=== PATIENT | male | born 1945 | race Caucasian/White ===

== ENCOUNTER 2024-11-29 17:27 | Emergency (ER) | payer MEDICARE, SELFPAY ==
[2024-11-29 17:41] VITALS: BP 137/82; PULSE 76; TEMP 36.9; O2SAT 97; BMI 19.0
--- NOTE | 2024-11-29 18:03 | CT_ITS ---
The [address] [address] Patient Name: SARWAT JOYCE MRN: [id number] date: 1945 Sex: M Assigned Patient Location: ER Current Patient Location: .[facility] Accession/Order Number: [id number] Exam Date: 11/29/2024 18:20 Report Date: 11/29/2024 18:45 At the request of: BARB RITCHIE MD Procedure: CT abdomen pelvis wo con CT abdomen pelvis wo con 11/29/2024 6:25 PM SIGNS AND SYMPTOMS: ^abd pain cramping TECHNIQUE: Multidetector ct axial images of the abdomen and pelvis were obtained without IV contrast. Multiplanar reformats were performed and reviewed to further define anatomy and possible pathology. CT was performed with one or more of the following dose reduction techniques: Automated exposure control, adjustment of the mA and/or kV according to patient size, or use of iterative reconstruction technique. COMPARISON: None. FINDINGS: Lower Chest: Atherosclerotic changes are noted in the coronary arteries and thoracic aorta. Emphysematous changes are noted in the lung parenchyma. ABDOMEN: Liver: Multiple hypoattenuating structures are noted in the liver measuring up to 1.7 cm in greatest dimension. These are nonspecific. Hepatic metastatic disease should be considered. Bile Ducts: Normal caliber. Gallbladder: Previously removed Pancreas: There is a heterogeneous mass along the head of the pancreas measuring 6.3 cm in greatest dimension suspicious for primary pancreatic malignancy. Spleen: Within normal limits. Adrenals: Bilateral adrenal masses are noted measuring 1.8 cm on the left and 2.3 cm on the right suspicious for metastatic disease. Kidneys: Within normal limits. Pelvis: Reproductive Organs: No pelvic masses. Ureters: Within normal limits. Bladder: Within normal limits. Bowel: Several uncomplicated colonic diverticula are noted. There is a moderate to large amount of stool within the colon suspicious for constipation. There is no bowel obstruction. There is a normal appendix in the right lower quadrant. Mesenteric Lymph Nodes: No enlarged mesenteric lymph nodes. Peritoneum: No ascites or free air, no fluid collection. Vessels: Atherosclerotic changes noted in the abdominal aorta and its branches. Retroperitoneum: Within normal limits. Abdominal Wall: Within normal limits. Bones: Degenerative changes are noted in the lumbar spine as well as the hips and sacroiliac joints. CT/CT abdomen pelvis wo con IMPRESSION: There is a heterogeneous mass along the head of the pancreas measuring 6.3 cm in greatest dimension suspicious for primary pancreatic malignancy. 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 Diffuse emphysematous changes are noted in the lung parenchyma There is a large amount of stool throughout colon suggesting constipation. Impression dictated by: Be Esquivel M.D. 11/29/2024 6:45 PM Dictation Location: [place] [address] Electronically authenticated by: [id number] Y Date: 11/29/2024 18:45
--- NOTE | 2024-11-29 18:23 | ED.ABDPAIN1 ---
HPI - Abdominal Pain General Chief Complaint: Abdominal Pain Stated Complaint: Abdominal Pain Time Seen by Provider: 11/29/24 17:53 Source: patient Mode of arrival: walk-in Limitations: no limitations History of Present Illness HPI narrative: 79-year-old male to the ER after his daughter brought him here for evaluation, he has been having for the last week abdominal pain mostly all over the abdomen mostly in the middle. According to him the pain comes and goes and it not related to food sometimes gets worse after food. Not associate with any nausea and vomiting and change in bowel habits including diarrhea or constipation Have no blood in stool denies any fever or chills and he does not have any pain at the moment Last time he had this pain was earlier before but his daughter was concerned because he had a history of aortic aneurysm that he does regular ultrasound for and she was worried that this is mostly secondary to that The patient denies any burning with urination no blood in urine as well Related Data Home Medications ?Medication ?Instructions ?Recorded ?Confirmed albuterol sulfate 2.5 mg/3 mL 2.5 mg inhalation Q8H PRN 11/29/24 11/29/24 (0.083 %) solution for nebulization shortness of breath or wheezing alprazolam 0.25 mg tablet 0.25 mg PO TID PRN anxiety 11/29/24 11/29/24 duloxetine 60 mg capsule,delayed 60 mg PO DAILY 11/29/24 11/29/24 release Allergies Allergy/AdvReac Type Severity Reaction Status Date / Time No Known Drug Allergies Allergy Verified 11/29/24 17:41 Review of Systems ROS Status of ROS 10 or more systems reviewed and unremarkable except as noted in history and below PFSH PFSH Social History Little interest or pleasure in doing things: not at all Feeling down, depressed, or hopeless: not at all Exam Narrative Exam Narrative: Nurses notes and vital signs reviewed and patient is not hypoxic. General: Well-appearing and in no apparent distress. Skin: Warm, dry, no pallor noted. No rash. Head: Normocephalic, atraumatic. Neck: Supple, non-tender. Cardiovascular: Regular Rate and Rhythm without murmur, gallop or rub. Respiratory: No accessory muscle use or respiratory distress. Lungs are clear to auscultation, no wheezing, rales or rhonchi Chest Wall: no tenderness Back: No midline thoracic or lumbar vertebral tenderness. No CVA tenderness Musculoskeletal: normal ROM, no calf or popliteal tenderness, no lower extremity edema/swelling GI: Abdomen is soft, non-distended. Normal bowel sounds. No masses appreciated. No tenderness to palpation. No rebound, guarding, or rigidity noted. Neurological: A&O x4. No cranial nerve dysfunction observed. No truncal ataxia. Moves all extremities. Sensation intact. Psychiatric: Cooperative and interactive. Normal mood and affect. Constitutional Vital Signs, click to edit/add: Last Vital Signs Temp 98.4 F 11/29/24 17:41 Pulse 76 11/29/24 17:41 Resp 16 11/29/24 17:41 BP 137/82 11/29/24 17:41 Pulse Ox 97 11/29/24 17:41 O2 Del Method Room Air 11/29/24 17:41 Course Vital Signs Vital signs: Vital Signs Temperature 98.4 F 11/29/24 17:41 Pulse Rate 76 11/29/24 17:41 Respiratory Rate 16 11/29/24 17:41 Blood Pressure 137/82 11/29/24 17:41 Pulse Oximetry 97 11/29/24 17:41 Oxygen Delivery Method Room Air 11/29/24 17:41 Temperature 98.4 F 11/29/24 17:41 Pulse Rate 76 11/29/24 17:41 Respiratory Rate 16 11/29/24 17:41 Blood Pressure 137/82 11/29/24 17:41 Pulse Oximetry 97 11/29/24 17:41 Oxygen Delivery Method Room Air 11/29/24 17:41 MDM - Abdominal Pain MDM Narrative Medical decision making narrative: Right now the pt is not in any distress, although he does have risk factors But his pain is crampy like in the lower abdomen mostly than the upper although he does not have it at the moment. The pain sometimes could be supraumbilical Right now the patient will have a general workup including CBC and chemistry as well as urine CT abd and pelvis pending Discharge Plan Discharge Patient Disposition: Still a Patient
[2024-11-29 18:30] LABS: Hematocrit 36.0 % (42.0-54.0); Hemoglobin 12.3 g/dL (14.0-18.0); Immature Granulocytes Abs Auto 0.01 10^3/uL (0.00-0.03); Immature Granulocytes Pct Auto 0.1 % (0.0-0.5); Lymphocytes Absolute Auto 1.2 10^3/uL (1.2-3.8); Mean Corpuscular HGB Conc 34.2 g/dL (29.9-35.2); Mean Corpuscular Hemoglobin 31.6 pg (25.9-34.0); Mean Corpuscular Volume 92.5 fL (80.0-94.0); Platelet Count 303 10^3/uL (150-450); Red Blood Count 3.89 10^6/uL (4.70-6.10); White Blood Count 7.5 10^3/uL (4.0-11.0)
[2024-11-29 18:39] LABS: Alanine Aminotransferase 28 U/L (16-63); Albumin Globulin Ratio 0.7; Albumin Level 3.1 g/dL (3.4-5.0); Alkaline Phosphatase 108 U/L (46-116); Anion Gap 13.1; Aspartate Amino Transferase 16 U/L (15-37); Blood Urea Nitrogen 14.0 mg/dL (7.0-18.0); Calcium 9.1 mg/dL (8.5-10.1); Carbon Dioxide 27.5 mmol/L (21.0-32.0); Chloride 104 mmol/L (98-107); Estimated GFR (African America >60 (>=60 mL/min/1.73m^2); Estimated GFR (Non-African Ame >60 (>=60 mL/min/1.73m^2); Globulin 4.2 g/dL; Glucose 113 mg/dL (74-106); Potassium 4.6 mmol/L (3.5-5.1); Sodium 140 mmol/L (136-145); Total Protein 7.3 g/dL (6.4-8.2)
[2024-11-29 18:42] LABS: Lactate/Lactic Acid 0.8 mmol/L (0.4-2.0)
[2024-12-01 12:08] LABS: CA 19-9 2454 U/mL (0-35); CEA 66.2 ng/mL (0.0-4.7)
== END 2024-11-29 19:21 | disposition home or self-care (01) ==
PROVIDERS: Emergency Provider Emergency Medicine; PCP Internal Medicine
DX: K86.9 Disease of pancreas, unspecified (principal); R10.9 Unspecified abdominal pain
CPT/HCPCS: 36415; 74176; 80053; 82378; 83605; 85025; 86301; 86316; 99285

== ENCOUNTER 2024-12-12 08:49 | Outpatient (RCR) | payer MEDICARE, SELFPAY ==
--- NOTE | 2024-12-12 11:15 | CT_ITS ---
The [address] [address] Patient Name: SARWAT JOYCE MRN: [id number] date: 1945 Sex: M Assigned Patient Location: [facility] Current Patient Location: [facility] Accession/Order Number: [id number] Exam Date: 12/12/2024 11:00 Report Date: 12/12/2024 12:12 At the request of: JUSTINA FERNANDES MD Procedure: CT angio chest CT PULMONARY ANGIOGRAM WITH CONTRAST CLINICAL HISTORY: Worsening shortness of breath. History of right lung cancer with upper lobectomy. Possible pancreatic cancer. COMPARISON: 07/05/2021, PET/CT 06/24/[address] 11/29/2024 TECHNIQUE: Spiral images were obtained through the chest following intravenous administration of 100 mL of Omnipaque 350. Images were reviewed using both narrow and wide window settings. Sagittal, coronal and 3 D volume-rendered reconstructions were performed and reviewed. This CT exam was performed using one or more following dose reduction techniques: Automated exposure control, adjustment of the mA and/or kV according to patient size, or use of iterative reconstruction technique. FINDINGS: The heart is borderline prominent. There is no pericardial effusion. There is mild coronary artery disease. There is mild dilatation ascending aorta with diameter 4.3 cm, similar the prior. There is no dissection. Atherosclerotic plaque is present at the aortic arch, descending aorta and proximal great vessels. There is adequate opacification of the pulmonary arteries. Bilateral segmental and subsegmental pulmonary artery filling defects are present compatible with emboli. There is right hilar mass/adenopathy extending into the paratracheal region. This is not seen in 2021 and is presumed to be patient's reported lung cancer. There is still suspected left thyroid nodularity. Mild degenerative changes are present at the spine. There is minor wedge deformity at superior endplate of T11 where there is also a Schmorl's node. There is a rounded lucency within the same vertebral body inferiorly on the left which is new since the comparison. A metastatic lesion is not excluded. There is obstructive lung disease with airspace lucencies and subpleural blebs. There is mild paramediastinal consolidation at the right upper lobe. There is scarring or atelectasis at the lung bases. There is a trace amount of pleural fluid at the right posterior costophrenic angle. There is no pneumothorax or discrete soft tissue nodules. Limited cuts through the upper abdomen show scattered indeterminate hepatic hypodensities. These may be cysts however metastatic lesions are not excluded. There is still a irregular enlargement of the pancreatic head. There are irregular bilateral adrenal masses. There might be a left renal cyst on the final image. There is also tiny renal cyst on the right. CT/CT angio chest IMPRESSION: BILATERAL PULMONARY EMBOLI. BORDERLINE CARDIOMEGALY AND MILDLY DILATED ASCENDING AORTA. RIGHT HILAR/SUPRAHILAR MASS AND/OR ADENOPATHY PRESUMED TO REPRESENT REPORTED NEOPLASM. OBSTRUCTIVE LUNG DISEASE WITH ATELECTASIS AND/OR SCARRING. TRACE AMOUNT OF RIGHT PLEURAL FLUID. INCIDENTAL UPPER ABDOMINAL FINDINGS, ALSO SEEN ON RECENT ABDOMINAL CT. T11 LUCENCY, NOT SEEN PREVIOUSLY. METASTATIC DISEASE IS NOT EXCLUDED. Impression dictated by: Jacinda Rodas M.D. 12/12/2024 12:12 PM Dictation Location: [place] [address] Electronically authenticated by: [id number] Y Date: 12/12/2024 12:12
[2024-12-12 11:29] LABS: Hematocrit 35.7 % (42.0-54.0); Hemoglobin 11.7 g/dL (14.0-18.0); Immature Granulocytes Abs Auto 0.03 10^3/uL (0.00-0.03); Immature Granulocytes Pct Auto 0.4 % (0.0-0.5); Lymphocytes Absolute Auto 1.0 10^3/uL (1.2-3.8); Mean Corpuscular HGB Conc 32.8 g/dL (29.9-35.2); Mean Corpuscular Hemoglobin 30.6 pg (25.9-34.0); Mean Corpuscular Volume 93.5 fL (80.0-94.0); Platelet Count 324 10^3/uL (150-450); Red Blood Count 3.82 10^6/uL (4.70-6.10); White Blood Count 8.1 10^3/uL (4.0-11.0)
[2024-12-12 13:33] LABS: Alanine Aminotransferase 34 U/L (16-63); Albumin Globulin Ratio 0.7; Albumin Level 2.9 g/dL (3.4-5.0); Alkaline Phosphatase 106 U/L (46-116); Anion Gap 10.0; Aspartate Amino Transferase 22 U/L (15-37); Blood Urea Nitrogen 15.0 mg/dL (7.0-18.0); Calcium 9.0 mg/dL (8.5-10.1); Carbon Dioxide 31.4 mmol/L (21.0-32.0); Chloride 101 mmol/L (98-107); Estimated GFR (African America >60 (>=60 mL/min/1.73m^2); Estimated GFR (Non-African Ame >60 (>=60 mL/min/1.73m^2); Globulin 4.1 g/dL; Glucose 140 mg/dL (74-106); Potassium 4.4 mmol/L (3.5-5.1); Sodium 138 mmol/L (136-145); Total Protein 7.0 g/dL (6.4-8.2)
== END 2024-12-15 23:59 | disposition home or self-care (01) ==
LOC: HEMC 08:49
PROVIDERS: PCP Internal Medicine; Visit Provider Internal Medicine Hematology & Oncology
DX: C25.9 Malignant neoplasm of pancreas, unspecified (principal); D64.9 Anemia, unspecified; Z85.118 Personal history of other malignant neoplasm of bronchus and lung; R06.02 Shortness of breath; R07.9 Chest pain, unspecified; Z90.2 Acquired absence of lung [part of]; Z87.891 Personal history of nicotine dependence; Z80.41 Family history of malignant neoplasm of ovary; K76.9 Liver disease, unspecified; E27.9 Disorder of adrenal gland, unspecified; R10.13 Epigastric pain; R97.0 Elevated carcinoembryonic antigen [CEA]; I26.99 Other pulmonary embolism without acute cor pulmonale
CPT/HCPCS: 36415; 71275; 80053; 85025; 94618; G0463; Q9967

== ENCOUNTER 2024-12-18 13:23 | Outpatient (OUT) | payer MEDICARE, SELFPAY ==
--- OUTSIDE RECORDS SUMMARY | 2024-12-05 13:00 | XMS_ITS | Encounter Summary ---
Author Organization [facility] tem Address [id number] [address] [place] [address] Care Team Providers Care Tube Repairer Name Role Phone Matt Uribe MD Primary Care Provider [phone] Encounter Details DateTypeDepartmentCare Team (Latest Contact Info)Czayxzyiiyg95/21/2025 2:[address] On [address] [address] Social History Tobacco UseTypesPacks/DayYears UsedDateSmoking Tobacco: [id number] - 2007Smokeless Tobacco: Never Tobacco Cessation:Counseling Given: Not Answered Alcohol UseStandard Drinks/WeekCommentsNot Currently0 (1 standard drink = 0.6 oz pure alcohol)Hunger ScreeningAnswerDate RecordedWithin the past 12 months we worried whether our food would run out before we got money to buy more.Never True12/05/2024Within the past 12 months the food we bought just didn't last and we didn't have money to get more.Never True12/05/2024Sex and Gender Information ValueDate RecordedSex Assigned at BirthNot on fileLegal QcsGsls57/17/2025 1:53 PM EDTGender IdentityNot on fileSexual OrientationNot on filedocumented as of this encounter Last Filed Vital Signs Vital SignReadingTime TakenCommentsBlood Pressure--Pulse--Temperature-- Respiratory Rate--Oxygen Saturation--Inhaled Oxygen Concentration--Syfyiv15.2 kg (135 lb)12/05/2024 3:17 PM OARRsehjk177.9 cm (6')12/05/2024 3:17 PM EDTBody Mass Index18.311 3:17 PM EDTdocumented in this encounter Miscellaneous Notes * Pre-Procedure Instructions - Liane Bustillo RN - 12/05/2024 2:00 PM EDT Your surgery/procedure is scheduled at [facility] on 12/06/2024 at 1215 Arrival [id number] [facility] Address: [address] [place] [address] Park in [address]1 Parking lot located on [facility]. Report to the Entrance B. Check in at the information desk. The waiting room is located on the second floor. If you have any questions prior to surgery, please call Pre-Admission Clinic at [phone] between 7:30 am and 4:30 pm Wednesday through Wednesday. If you have questions the morning of surgery, please call the Pre-op Department at [phone]. Notify your SURGEON if you develop any illness such as a cold, cough, fever, sore throat, vomiting or are hospitalized between now and your surgery. Medication Instructions (Do not stop your medications without consulting the prescribing physician). Take the following medications the morning of surgery with a sip of water: Xanax, [place] Diabetic or Weight loss medications: HOLD: None Take inhalers as prescribed the morning of surgery. Due to the risk associated with these medications. If these medications are not held per instruction below, your surgery is at an increased risk for cancellation. SGLT2 Medications- Hold 3 days prior to surgery: Jardiance, Empagliflozin, Farxiga, Dapagliflozin, Invokana, Canagliflozin, Trijardy, Synjardy GLP-1 Medications (Injection or Pill)- If taken daily hold day of surgery. If taken weekly, hold 1 week prior to surgery: Adlyxin, Byetta, Bydureon, Ozempic, Rybelsus,Trulicity, Victoza, Wegovy, Lixisenatide, Exenatide, Semaglutide, Dulaglutide, Liraglutide GIP/GLP-1(Injection or Pill)- If taken daily hold day of surgery. If taken weekly, hold 1 week prior to surgery: Mounjaro . Blood thinners: Please contact your prescribing physician regarding a stop/hold date for these medications. Medications such as Coumadin, Heparin, Aspirin, Plavix, Eliquis, Pradaxa Diabetics: If you take insulin, contact your prescribing doctor for instructions on how to manage this the night before and the morning of surgery. Non-steriodal Anti-Inflammatory Drugs (NSAIDS)- Hold 3 days prior to surgery unless otherwise directed by your surgeon. Vitamins/Herbal Products: You may continue to take your prescribed vitamins such as potassium, iron, vitamin B, vitamin C, or multivitamin unless specifically instructed by your surgeon to hold. STOPtaking all herbal products/teas one week prior to your surgery. Marijuana: Stop marijuana 72 hours prior to surgery, stop CBD oil 48 hours prior to surgery. If you have been given bowel prep instructions by your surgeon, please call the surgeon's office with any questions about these instructions. What do I do the day of Surgery? Age 2 through adult - Stop all solids by midnight, You may have a small amount of clear liquids up to 2 hours before surgery, unless otherwise instructed by your surgeon. Clear liquids are: water, sports drinks such as Gatorade or G2, or apple juice. You may NOT have: tube feedings, dairy products, alcoholic beverages, orange juice, or any liquids with solids or pulp in it. If applicable, shower again with CHG soap the morning of your surgery. In order to help prevent infection post-operatively, you may be asked to use a CHG mouthwash when you arrive to the Pre-op area. Your nurse will provide instruction the morning of. What do I need to do to prepare for surgery? If you will be going home the same day as your surgery, arrange for an adult over [address] Riding in a bus or taxi by yourself is not permitted. You should not smoke or drink alcohol 24 hours before your surgery. Alcohol thins the blood and may cause bleeding problems during surgery. Smoking increases the risk of breathing problems after surgery. Do not use lotions, creams, powders, perfume, make up, cologne or after-shaves day of surgery. Remove ALL jewelry including wedding rings, body piercings (including dermal piercing's, hair extensions that contain metal, nail urdu, make-up, and contact lens. You may brush your teeth the morning of surgery, but do not swallow the water. Wear your dentures and partial plates to the hospital (no adhesive). Shower the night before your procedure. If applicable, use the CHG (chlorhexidine gluconate) soap or wipes. Place clean linens on your bed after showering and put on freshly laundered nightclothes. Do not allow pets to sleep in your bed What should I bring to the hospital? Eyeglass or contact lens case If you will be spending the night, please bring personal care items and leave them in the car untilyou are taken to your room after surgery. Leave ALL valuables at home. If any of these instructions conflict with those you received from the surgeon, please seek clarification from your surgeon's office. DEEP BREATHING EXERCISES This exercise helps promote good air exchange and helps to prevent pneumonia after surgery. Breathe in slowly and deeply through the nose. Hold your breath for a few seconds and then exhale slowly through the mouth. Repeat this three times and then cough.Coughing helps to clear your lungs. If you have had a surgery with an incision into your abdomen or chest, press gently against your incision with a pillow or a folded blanket when you cough. Please be aware - it may not be plaza to cough following some types of surgeries involving the eyes,ears, sinuses and throat. Always follow your doctor's instructions. LEG EXERCISE These exercises help promote good circulation and help to prevent blood clots after surgery. Point your toes to the ceiling and then point them to the wall. Do this slowly about 15-20 times. You may also move your feet in circles. Do the exercise that is most comfortable for you. If you have had surgery involving your shoulder or arm, we recommend you move your fingers. PRACTICING We ask that you begin practicing these exercises before your surgery. After surgery try to do both exercises at least every 2 hours during the day and early evening. Surgical Site Infection Prevention What is a Surgical Site Infection (SSI)? Infection can happen to the area of the body where surgery is done. This is called a surgical site infection (SSI). A SSI does not happen very often. What are some of the things that hospitals are doing to prevent SSIs? Soap and water or alcohol hand rub are used before and after caring for each patient. Special soap is used to clean surgery workers hands and arms just before the surgery. Masks, gowns, gloves and hair covers are worn during the surgery to keep the area clean. Hair in the surgery area may be removed with clippers (not razors). A special soap that kills germs is used to clean the skin at the surgery site. Antibiotics may be given before the surgery starts. What can you do to prevent SSIs? Before surgery: You may be asked to shower or bathe with a special soap that kills germs the night before and the day of surgery. Use the soap as you were told. Place clean sheets on your bed the night before surgery and do not allow your pets in your bed. If you smoke or vape, stop or cut down. This creates a stress response in your body that increases inflammation, constricts blood vessels and deprives your tissues of oxygen. After surgery, this stress response disrupts the travel of oxygen, nutrients, and blood to your surgical site, interfering with the wound healing process. It also decreases the ability of your cells to fight infection. Ask your doctor about ways to quit. If you have high blood sugars or diabetes please talk with your doctor about having healthy blood sugar levels to promote healing. Do not shave near where you will have surgery. Shaving can irritate the skin and make it easier to get and infection. After surgery: Be sure that the doctors and nurses clean their hands before and after touching you. Be sure your family and friends clean their hands before and after visiting you. Do not be afraid to remind them. Always wash your hands before touching your incisional area. * Care for your wound at home as told by your doctor or nurse * Call your doctor right away if you have fever, redness, increased pain, or drainage at the surgery site. Can SSIs be treated? Antibiotics are used to treat SSI. Some patients may need another surgery to treat the infection. The doctor will discuss treatment options with you. Further questions? Contact the doctor, nurse or the Infection Prevention and Control department if you have any questions. PATIENT RIGHTS AND RESPONSIBILITIES As a patient at [facility], you have the right to: Receive medical care and be informed of who is taking care of you Be treated with dignity and respect Have a family member/customer contact representative of choice and your physician notified of your admission Receive information and actively participate in decisions about your care and treatment Refuse care, treatment and services Decide who may provide your support and speak for you Access denominational and spiritual services Participate in ethical issues and questions about your care Receive private and confidential care Have appropriate assessment and management of your pain Know guest visitation restrictions or limitations Have an advance directive Access protective services Consent or refuse to participate in research studies or production or recordings, films or other images Have resolution of your complaints Receive information of hospital charges and payment methods Patient/patient customer contact representative responsibilities are to: Provide information about health status to facilitate care, treatment and services Follow the treatment, plan, keep appointments and speak up when you do not understand the plan Respect the rights of other patients and healthcare personnel Follow organizational rules and regulations that support quality care and a safe environment Fulfill financial obligations as promptly as possible documented in this encounter Plan of Treatment Not on file documented as of this encounter Visit Diagnoses Not on filedocumented in this encounter Care Teams Team MemberRelationshipSpecialtyStart DateEnd Date Matt Uribe MD [address] [id number] PCP - GeneralInternal Lgoqiobd36/21/25documented as of this encounter
--- OUTSIDE RECORDS SUMMARY | 2024-12-06 09:26 | XMS_ITS | Encounter Summary ---
Author Organization [facility] tem Address [id number] [address] [place] [address] Care Team Providers Care Time Analysis Clerk Name Role Phone Matt Uribe MD Primary Care Provider [phone] Reason for Referral * Misc (Routine) - Pending ReviewSpecialtyDiagnoses / ProceduresReferred By ContactReferred To Contact Procedures Adult diet- Regular Ramirez Ochoa MD [address] [place] [address] Phone: tel: fax: Referral IDStatusReasonStart DateExpiration DateVisits RequestedVisits [id number] * Misc (Routine) - Pending ReviewSpecialtyDiagnoses / ProceduresReferred By ContactReferred To Contact Diagnoses Pancreatic mass Procedures What to Expect after Endoscopy Ramirez Ochoa MD [address] [place] [address] Phone: tel: fax: Referral IDStatusReasonStart DateExpiration DateVisits RequestedVisits [id number] Reason for Visit * Auth/Cert (Routine)SpecialtyDiagnoses / ProceduresReferred By ContactReferred To Contact Diagnoses Ne pancreatic mass Procedures RI ESOPHAGOGASTRODUODENOSCOPY TRANSORAL DIAGNOSTIC ESOPHAGOGASTRODUODENOSCOPY DIAGNOSTIC ENDOSCOPIC ULTRASOUND UPPER Cintia Stephens MD [address] [facility], [address] [place] [address] Phone: tel: fax: Referral IDStatusReasonStart DateExpiration DateVisits RequestedVisits [id number] Encounter Details DateTypeDepartmentCare Team (Latest Contact Info)Uocnpkaqmho63/22/2025 10:26 AM EDT - 12/06/2024 3:56 PM EDTHospital Encounter [facility] - [facility] [address] [place] [phone] Cintia Stephens MD [address] [place] [address], [address] [place] [address] Pancreatic mass (Primary Dx) Discharge Disposition: Home Social History Tobacco UseTypesPacks/DayYears UsedDateSmoking Tobacco: [id number] - 2007Smokeless Tobacco: NeverAlcohol UseStandard Drinks/WeekCommentsNot Currently0 (1 standard drink = 0.6 oz pure alcohol)Hunger ScreeningAnswerDate RecordedWithin the past 12 months we worried whether our food would run out before we got money to buy more.Never True12/05/2024Within the past 12 months the food we bought just didn't last and we didn't have money to get more.Never True12/05/2024Sex and Gender InformationValueDate RecordedSex Assigned at Not on fileLegal LikTvuv94/17/2025 1:53 PM EDTGender IdentityNot on fileSexual OrientationNot on filedocumented as of this encounter Last Filed Vital Signs Vital SignReadingTime TakenCommentsBlood Zvtyzaus446/7512/06/2024 3:05 PM EDT Icbra789212/06/2024 3:10 PM WHRSuyxguwejgj23.3 ??C (97.3 ??F)12/06/2024 2:35 PM EDTRespiratory Tltl4521 3:10 PM EDTOxygen Cpdxvbejhs53%12/06/2024 3:10 PM EDTInhaled Oxygen Concentration--Weight--Height--Body Mass Index--documented in this encounter Discharge Instructions * Discharge Instructions* Tiesha Aquino RN - 12/06/2024 2:30 PM EDT General Activity: If you have been put to sleep (general anesthetic) or received any sedation, your judgement and coordination may be impaired. Be careful on steps, holding a hot drink, etc. Do not make any important decisions or sign any important papers in the next 24 hours. You should have a responsible adult with you the rest of today and tonight. Restrict your activities and rest for the day. Resume light to normal activity tomorrow as you feelyou can. You are advised to go directly home from the hospital. Do not engage in strenuous activities Do not drive or operate machinery for 24 hours. Do not consume alcohol, tranquilizers, sleeping medications, or any non- prescribed medication for 24 hours unless advised by your doctor to do so. Children may become very pink and flushed for the next 24 hours. Specific problems to watch for: Severe of unexplained pain. Fever greater than 101 in the next few days. Inability to pass urine in the next 6-8 hours. No driving, working, or operating machinery for 24 hours. Do not make any critical or important decisions today. If you had an EGD, you may have a sore throat. You may gargle with warm salt water or use throat lozenges. Things to go to the nearest ER for: Fever and/or chills Persistent vomiting, or any vomiting with blood. Severe chest pain Severe abdominal pain, that is not gas pains. Black tarry stools, or any bleeding in the toilet more than 1 tablespoon documented in this encounter Medications at Time of Discharge MedicationSigDispense QuantityRefillsLast FilledStart DateEnd Date albuterol (PROVENTIL,VENTOLIN) 2.5 mg /3 mL (0.083 %) nebulizer solution 3 mL (2.5 mg total) Three times daily as needed.11/30/2024 ALPRAZolam (XANAX) 0.25 mg tablet Take 1 tablet (0.25 mg total) by mouth every 8 (eight) hours as needed for anxiety.08/01/2024 DULoxetine (CYMBALTA) 60 mg capsule Indications:anxiety with depressionTake 1 capsule (60 mg total) by mouth in the morning. Indications: anxiousness associated with depression.05/22/2024 amoxicillin-pot clavulanate (AUGMENTIN) 875-125 mg per tablet Take 1 tablet by mouth in the morning and 1 tablet before bedtime.12/01/2024 12/11/2024 HYDROcodone-acetaminophen (NORCO) 5-325 mg per tablet Take 1 tablet by mouth every 6 (six) hours as needed. documented as of this encounter H&P Notes * Ramirez Ochoa MD - 12/05/2024 1:56 PM EDT Images from the original note were not included. GENERAL HISTORY AND PHYSICAL: 12/05/24 PROBLEM: Active Problems: * No active hospital problems. * HISTORY OF PRESENT ILLNESS: Angel Luis Davis is an 79 y.o. Unknown male. Of abdominal discomfort with abdominal pain and nausea and therefore wanted to the ED. Abdominal CT scan was done and showed findings concerning for pancreatic mass concerning for malignancy. Therefore patient is scheduled for EGD with EUS. LFTs reportedly normal. Can not see the CT report or labs in his chart. PAST MEDICAL HISTORY: No past medical history on file. PAST SURGICAL HISTORY: No past surgical history on file. Travel History Travel Screening No screening recorded since 12/02/24 1356 Travel History Travel since 11/05/24 No documented travel since 11/05/24 SOCIAL HISTORY: Social History Socioeconomic History Marital status: Spouse name: Not on file Number of children: Not on file Years of education: Not on file Highest education level: Not on file Occupational History Not on file Tobacco Use Smoking status: Not on file Smokeless tobacco: Not on file Substance and Sexual Activity Alcohol use: Not on file Drug use: Not on file Sexual activity: Not on file Other Topics Concern Not on file Social History Narrative Not on file Social Drivers of Health Financial Resource Strain: Not on file Food Insecurity: Not on file Transportation Needs: Not on file Physical Activity: Not on file Stress: Not on file Social Connections: Not on file Interpersonal Safety: Not on file Housing Instability: Not on file ALLERGIES: Not on File HOME MEDICATIONS: No medications prior to admission. IMMUNIZATIONS: There is no immunization history on file for this patient. REVIEW OF SYSTEMS: Review of Systems No LMP for male patient. There were no vitals taken for this visit. No data recorded PHYSICAL EXAM: Physical Exam ASSESSMENT: Angel Luis Davis is an 79 y.o. Unknown male. Of abdominal discomfort with abdominal pain and nausea and therefore wanted to the ED. Abdominal CT scan was done and showed findings concerning for pancreatic mass concerning for malignancy. Therefore patient is scheduled for EGD with EUS. LFTs reportedly normal. Can not see the CT report or labs in his chart. PLAN: Will plan for EGD with EUS for further evaluation of pancreatic mass concerning for malignancy Cosigned by Cintia Stephens MD at 12/06/2024 12:36 PM EDT Associated attestation - Cintia Stephens MD - 12/06/2024 12:36 PM EDT The patient was seen and examined. Agree with the assessment and plan. The patient is presenting with abdominal pain and weight loss. He had a CT scan of abdomen that revealed pancreatic mass suspicious for malignancy. The patient is scheduled to have an upper endoscopyand endoscopic ultrasound to assess the pancreas. documented in this encounter Miscellaneous Notes * Discharge instr - Endo Pulm - Cintia Stephens MD - 12/06/2024 12:58 PM EDT Patient Instructions After Upper EUSPatient: Angel Luis DavisMRN: [id number] Date: December 06ttending MD: Cintia White Doctor recommends:NoneGo directly to the emergency room if you notice any of the following: Chills and fever over 101 Persistent vomiting or vomiting with blood Severe abdominal pain, other than gas cramps Severe chest pain Black, tarry stools Any bleeding - exceeding one tablespoonIf you have any questions on the above instructions, please call the GI Lab. Nurse Signature Patient/Designated Responsible Republican SignatureDr. Cintia Stephens, 12/07/2024 8:25:57 AM documented in this encounter Plan of Treatment Not on file documented as of this encounter Procedures Procedure NamePriorityDate/TimeAssociated DiagnosisCommentsNON-GYNECOLOGIC NLJMAOOYDkozdpy23/22/2025 1:47 PM EDT ENDOSCOPIC ULTRASOUND UPPER12/06/2024 1:12 PM EDT Ne pancreatic mass RI ESOPHAGOGASTRODUODENOSCOPY TRANSORAL JORFTXZRCC12/22/2025 1:12 PM EDT Ne pancreatic mass ENDOSCOPIC ULTRASONOGRAPHY, GI UPPER12/06/2024 12:58 PM EDT PROVATION UPPER PVAXiytwfd99/22/2025 11:08 AM EDT documented in this encounter Results * Cytology non-gynecologic (12/06/2024 1:47 PM EDT)ComponentValueRef RangeTest MethodAnalysis TimePerformed AtPathologist SignatureCase ReportMedical Cytology Report ? Case: [id number] ? Authorizing Provider: ??Cintia Stephens MD ? Collected: ? 12/06/2024 1347 ? Ordering Location: ? [facility] ??Received: ?12/06/2024 1425 ? - Endoscopy ? Pathologist: ? Rodrigo Cody MD ? Specimens: ?? 1) - Liver, Left Hepatic Lobe ? 2) - Adrenal Gland, Left Adrenal Mass ? 3) - Pancreas, Pancreas Mass ? 12/11/2024 11:40 AM [facility]ORATORYFinal Diagnosis1. Liver lesion, fine-needle aspiration: Positive for metastatic ADENOCARCINOMA. 2. Adrenal gland, fine-needle aspiration: Positive for metastatic ADENOCARCINOMA. Note: This case is reviewed intradepartmentally by another pathologist who agrees with the diagnosis. Immunohistochemical stains are performed with satisfactory controls. Neoplastic cells are positive for AE1/AE3 and are negative for PAX8, CK20, mart 1 and inhibin. Cytologic features and pattern of immunohistochemical staining is supportive of a diagnosis of an adenocarcinoma. 3. Pancreas mass, fine-needle aspiration (cellblock only): Few atypical cells, suspicious for adenocarcinoma.12/11/2024 11:40 AM [facility] at 1140 EDTIntraoperative Consultation1. Liver fine needle aspirate: Pass 1: Positive for neoplasm 2. Adrenal fine needle aspirate: Pass 1: Positive for neoplasm Dr. Shae Cody Interpretation provided at [facility], [facility] [place] [address]. 12/11/2024 11:40 AM [facility]ORATORYGross Description1. Prepared in Endoscopy were 2 slides (1DQ). Also received was a needle rinse in CytoLyt for Thinprep. 2. Prepared in Endoscopy were 2 slides (1DQ). Also received was a needle rinse in CytoLyt for cellblock. Needle rinse obtained at 13:54 and placed in formalin at 18:00 with a total formalin fixation time of 7 hours. 3. Received was 20ml of cloudy pink fluid in CytoLyt for cellblock labeled as Ryan, Pancreas FNA . Specimen placed in formalin at 18:00 with a total fixation time of 7 hours. 12/11/2024 11:40 AM [facility] LABORATORYEmbedded Images 12/11/2024 11:40 AM [facility] LABORATORYSpecimen (Source)Anatomical Location / LateralityCollection Method / VolumeCollection TimeReceived TimeFine Needle AspirateLiver structure / Tahmjnz9912/06/2024 1:47 PM EDT1 2:25 PM EDTComment:Pre-op diagnosis: Ne pancreatic massSpecimen obtained by fine needle aspiration procedure (specimen)Adrenal structure / Xcijkul7212/06/2024 1:54 PM EDT1 2:25 PM EDTComment:Pre-op diagnosis: Ne pancreatic massSpecimen obtained by fine needle aspiration procedure (specimen)Pancreatic structure / Kgtlzwq2212/06/2024 2:03 PM EDT1 2:25 PM EDTComment:Pre-op diagnosis: Ne pancreatic mass Narrative Authorizing ProviderResult TypeResult StatusAli T Nawras MDPATHOLOGY/CYTOLOGY ORDERABLESFinal ResultPerforming OrganizationAddressCity/State/ZIP CodePhone Number [facility] [address] [place] [address], [facility] [address] [place] [address], * Endoscopic Ultrasonography, GI Upper (12/06/2024 12:58 PM EDT)Specimen (Source)Anatomical Location / LateralityCollection Method / VolumeCollection TimeReceived Time12/06/2024 12:58 PM EDT Narrative PM C[facility] - 12/07/2024 8:26 AM EDT [facility] Patient Name: Angel Luis Davis ?? Procedure Date: 12/06/2024 12:58 PM ? CSN: [id number] Date of : 1945 Admit Type: Outpatient Age: 79 Room: [place] [address] Gender: Male Note Status: Finalized Attending MD: Cintia Stephens , , Procedure: ?Upper EUS Indications: ?History of lung cancer that was resected in ?2022. ?Pancreatic mass, liver mass, and adrenal mass. Providers: ?Lux Abdalla MD Referring MD: ? Requesting Provider: ? Medicines: ?Monitored Anesthesia Care Complications: ?No immediate complications. Procedure: ?After obtaining informed consent, the endoscope ?was passed under direct vision. Throughout the ?procedure, the patient's blood pressure, pulse, ?and oxygen saturations were monitored ?continuously. The Endoscope was introduced ?through the mouth, and advanced to the second ?part of duodenum. The was introduced through ?the mouth, and advanced to the second part of ?duodenum. The upper EUS was accomplished ?without difficulty. The patient tolerated the ?procedure well. Findings: ? Examination of the esophagus revealed 1 cm salmon-colored mucosal ? segment extended from 45-46 cm from the incisors. The GE junction was ? noted at 46 cm and the diaphragm hiatus was noted at 48 cm from the ? incisors. Examination of the stomach was unremarkable as well as ? examination of the duodenum. Examination of the abdominal aorta and the ? celiac axis was unremarkable. Examination of the left adrenal revealed a ? hypoechoic round and well demarcated mass measured 26.8 mm x 21.0 mm. ? Examination of the left lobe of the liver revealed a small lesion that ? measured 12 mm by 7.5 mm. The endosonographic examination of the ? pancreatic body revealed a hypoechoic heterogeneous and ill-defined mass ? that measured 60.2 mm x 34.4 mm. The pancreatic duct measured 6.3 mm at ? the tail of the pancreas. Examination of the head of the pancreas ? revealed the pancreatic head mass which is likely an extension of the ? mass noted at the body of the pancreas. The common bile duct measured ? 8.5 mm. No choledocholithiasis was noted. The radial echoendoscope was ? then withdrawn and the Olympus video curvilinear array echoendoscope was ? introduced through the mouth down to the esophagus into the stomach. The ? left hepatic lobe lesion was re-identified and with the use of 25 gauge ? needle fine-needle aspiration was performed. The left adrenal mass was ? re-identified and with the use of the 25 gauge needle fine-needle ? aspiration was performed. Finally fine-needle aspiration of the ? pancreatic body mass was performed using the 25 gauge needle. A ? cytopathologist was present in the room and confirmed the adequacy of ? the sample. Estimated Blood Loss: ? Minimal Impression: ? - Large pancreatic mass noted at the body/head ?of the pancreas measured 60.2 mm x 34.4 mm. ?Fine-needle aspiration was performed. ?- Small left hepatic lobe lesion measured 12 mm ?x 7.5 mm. Fine-needle aspiration was performed. ?- Left adrenal mass measured 26.8 mm x 21.0 mm. ?Fine-needle aspiration was performed. Recommendation: ? - Discharge patient to home (ambulatory). ?- Follow up cytology results. ?- Upon cytology results. ?- Follow up with Dr. Nick for further ?management. ?I was present in the endoscopy room during the ?entire procedure to supervise the fellow. Dr. Cintia Stephens, 12/07/2024 8:25:57 AM Number of Addenda: 0 Note Initiated On: 12/06/2024 12:58 PM Procedure Note Cintia Stephens MD - 12/07/2024 [facility] Patient Name: Angel Luis Davis Procedure Date: 12/06/2024 12:58 PM CSN: [id number] Date of : 1945 Admit Type: Outpatient Age: 79 Room: [place] [address] Gender: Male Note Status: Finalized Attending MD: Cintia Stephens , , Procedure: Upper EUS Indications: History of lung cancer that was resected in 2022. Pancreatic mass, liver mass, and adrenalmass. Providers: Lux Abdalla MD Referring MD: Requesting Provider: Medicines: Monitored Anesthesia Care Complications: No immediate complications. Procedure: After obtaining informed consent, theendoscope was passed under direct vision. Throughoutthe procedure, the patient's blood pressure,pulse, and oxygen saturations were monitored continuously. The Endoscope was introduced through the mouth, and advanced to thesecond part of duodenum. The was introduced through the mouth, and advanced to the second partof duodenum. The upper EUS was accomplished without difficulty. The patient toleratedthe procedure well. Findings: Examination of the esophagus revealed 1 cm salmon-colored mucosal segment extended from 45-46 cm from the incisors. The GE junction was noted at 46 cm and the diaphragm hiatus was noted at 48 cm from the incisors. Examination of the stomach was unremarkable as well as examination of the duodenum. Examination of the abdominal aorta andthe celiac axis was unremarkable. Examination of the left adrenalrevealed a hypoechoic round and well demarcated mass measured 26.8 mm x 21.0 mm. Examination of the left lobe of the liver revealed a small lesionthat measured 12 mm by 7.5 mm. The endosonographic examination of the pancreatic body revealed a hypoechoic heterogeneous and ill-definedmass that measured 60.2 mm x 34.4 mm. The pancreatic duct measured 6.3 mmat the tail of the pancreas. Examination of the head of the pancreas revealed the pancreatic head mass which is likely an extension of the mass noted at the body of the pancreas. The common bile duct measured 8.5 mm. No choledocholithiasis was noted. The radial echoendoscopewas then withdrawn and the Olympus video curvilinear array echoendoscopewas introduced through the mouth down to the esophagus into the stomach.The left hepatic lobe lesion was re-identified and with the use of 25gauge needle fine-needle aspiration was performed. The left adrenal masswas re-identified and with the use of the 25 gauge needle fine-needle aspiration was performed. Finally fine-needle aspiration of the pancreatic body mass was performed using the 25 gauge needle. A cytopathologist was present in the room and confirmed the adequacy of the sample. Estimated Blood Loss: Minimal Impression: - Large pancreatic mass noted at thebody/head of the pancreas measured 60.2 mm x 34.4 mm. Fine-needle aspiration was performed. - Small left hepatic lobe lesion measured 12mm x 7.5 mm. Fine-needle aspiration wasperformed. - Left adrenal mass measured 26.8 mm x 21.0mm. Fine-needle aspiration was performed. Recommendation: - Discharge patient to home (ambulatory). - Follow up cytology results. - Upon cytology results. - Follow up with Dr. Nick for further management. I was present in the endoscopy room duringthe entire procedure to supervise the fellow. Dr. Cintia Stephens, 12/07/2024 8:25:57 AM Number of Addenda: 0 Note Initiated On: 12/06/2024 12:58 PM Authorizing ProviderResult TypeResult Nella Stephens MDGI PROCEDURE ORDERABLESFinal ResultPerforming OrganizationAddressCity/State/ZIP CodePhone Number PM CARDIOVASC[facility] * Upper EUS Report (12/06/2024 11:08 AM EDT)Specimen (Source)Anatomical Location / LateralityCollection Method / VolumeCollection TimeReceived Time Narrative SYSTEMGENERATED, DOCUMENTATION - 12/06/2024 11:08 AM EDT This order has been auto-finalized for image and report archival in PACs. *For full report details, please reach out to your physician. ??This image is visible to you in MyChart.* Authorizing ProviderResult TypeResult Nella Stephens MDIMG OR IMG ORDERABLES Final Result documented in this encounter Visit Diagnoses Diagnosis Pancreatic mass- Primary Unspecified disease of pancreas documented in this encounter Administered Medications Medication OrderMAR ActionAction DateDoseRateSite fentaNYL (SUBLIMAZE) injection 25 mcg 25 mcg, intravenous, Every 5 min PRN, Pain Scale 1-5, Starting on Wed12/06/24 at 1428, PACU (only), Up to a maximum dose of 150 mcg. Look-alike/sound-alike medication - verify indication for use. fentaNYL (SUBLIMAZE) injection 50 mcg 50 mcg, intravenous, Every 5 min PRN, Pain Scale 6-10, Starting on Wed12/06/24 at 1428, PACU (only), Up to a maximum dose of 150 mcg Look-alike/sound-alike medication - verify indication for use. hydrALAZINE (APRESOLINE) injection 5 mg 5 mg, intravenous, Every 10 min PRN, high blood pressure, systolic blood pressure greater than 160 mmHg, Starting on Wed12/06/24 at 1428, PACU (only), Maximum dose of hydrALAZINE (APRESOLINE) is 20 mg while in PACU Look-alike/sound-alike medication - verify indication for use. Administer IV doses as a slow IV push; maximum rate: 5 mg/minute. labetaloL (NORMODYNE,TRANDATE) injection 5 mg 5 mg, intravenous, Every 5 min PRN, high blood pressure, systolic blood pressure greater than 160 mmHg and heart rate greater than 60 beats per minute, Starting on Wed12/06/24 at 1428, PACU (only), Maximum dose of labetalol (TRANDATE) is 20 mg while in PACU Look-alike/sound-alike medication - verify indication for use. meperidine (DEMEROL) injection 12.5 mg 12.5 mg, intravenous, Every 15 min PRN, shivering, Starting on Wed12/06/24 at 1428, For 2 doses, PACU (only), May repeat initial dose in 15 minutes, once, if initial meperidine (DEMEROL) dose ineffective for shivering. morphine injection 2 mg 2 mg, intravenous, Every 5 min PRN, for Pain Scale 1-5 if pain not controlled by fentanyl, Startingon Wed12/06/24 at 1428, PACU (only), Up to a maximum dose of 12 mg Look-alike/sound-alike medication - verify indication for use. morphine injection 4 mg 4 mg, intravenous, Every 5 min PRN, Pain Scale 6-10 if pain not controlled by fentanyl, Starting onWed 12/06/24 at 1428, PACU (only), Up to a maximum dose of 12 mg Look-alike/sound-alike medication - verify indication for use. naloxone (NARCAN) injection 0.1 mg 0.1 mg, intravenous, As needed, respiratory depression, Starting on Wed12/06/24 at 1428, For 4 doses, PACU (only), Maximum dose: 0.4 mg Look-alike/sound-alike medication - verify indication for use. oxyCODONE (ROXICODONE) immediate release tablet 10 mg 10 mg, oral, Every 4 hours PRN, severe pain - pain scale 7-10, Starting on Wed12/06/24 at 1428, PACU (only), Look-alike/sound-alike medication - verify indication for use. Immediate release. oxyCODONE (ROXICODONE) immediate release tablet 5 mg 5 mg, oral, Every 4 hours PRN, pain scale 1-6, Starting on Wed12/06/24 at 1428, PACU (only), Look-alike/sound-alike medication - verify indication for use. Immediate release. documented in this encounter Active and Recently Administered Medications Times are shown in EDT.Medication Order// lactated ringers infusion (CANCELED) 20 mL/hr, intravenous, Continuous, Starting on Wed12/06/24 at 1115, Pre-op, If fluid restriction is not indicated, infuse at a rate up to 5 mL/kg/hr not to exceed the total replacement volume (2 ml/kg/hr) from the time NPO status was initiated. * 1312 (New Bag - Provider: Bladimir Storey APRN-POINT OF CARE SPECIALIST) * 1432 (Due: Order Ending - Provider: Automatic Transfer Provider - Comment: [Order ends at this time. Document the following action when infusion is complete: Stop Bag]) Medication Order// fentaNYL (SUBLIMAZE) injection 25 mcg 25 mcg, intravenous, Every 5 min PRN, Pain Scale 1-5, Starting on Wed12/06/24 at 1428, PACU (only), Up to a maximum dose of 150 mcg. Look-alike/sound-alike medication - verify indication for use. fentaNYL (SUBLIMAZE) injection 50 mcg 50 mcg, intravenous, Every 5 min PRN, Pain Scale 6-10, Starting on Wed12/06/24 at 1428, PACU (only), Up to a maximum dose of 150 mcg Look-alike/sound-alike medication - verify indication for use. hydrALAZINE (APRESOLINE) injection 5 mg 5 mg, intravenous, Every 10 min PRN, high blood pressure, systolic blood pressure greater than 160 mmHg, Starting on Wed12/06/24 at 1428, PACU (only), Maximum dose of hydrALAZINE (APRESOLINE) is 20 mg while in PACU Look-alike/sound-alike medication - verify indication for use. Administer IV doses as a slow IV push; maximum rate: 5 mg/minute. labetaloL (NORMODYNE,TRANDATE) injection 5 mg 5 mg, intravenous, Every 5 min PRN, high blood pressure, systolic blood pressure greater than 160 mmHg and heart rate greater than 60 beats per minute, Starting on Wed12/06/24 at 1428, PACU (only), Maximum dose of labetalol (TRANDATE) is 20 mg while in PACU Look-alike/sound-alike medication - verify indication for use. meperidine (DEMEROL) injection 12.5 mg 12.5 mg, intravenous, Every 15 min PRN, shivering, Starting on Wed12/06/24 at 1428, For 2 doses, PACU (only), May repeat initial dose in 15 minutes, once, if initial meperidine (DEMEROL) dose ineffective for shivering. morphine injection 2 mg 2 mg, intravenous, Every 5 min PRN, for Pain Scale 1-5 if pain not controlled by fentanyl, Startingon Wed12/06/24 at 1428, PACU (only), Up to a maximum dose of 12 mg Look-alike/sound-alike medication - verify indication for use. morphine injection 4 mg 4 mg, intravenous, Every 5 min PRN, Pain Scale 6-10 if pain not controlled by fentanyl, Starting onWed 12/06/24 at 1428, PACU (only), Up to a maximum dose of 12 mg Look-alike/sound-alike medication - verify indication for use. naloxone (NARCAN) injection 0.1 mg 0.1 mg, intravenous, As needed, respiratory depression, Starting on Wed12/06/24 at 1428, For 4 doses, PACU (only), Maximum dose: 0.4 mg Look-alike/sound-alike medication - verify indication for use. oxyCODONE (ROXICODONE) immediate release tablet 10 mg(Linked Group 1) 10 mg, oral, Every 4 hours PRN, severe pain - pain scale 7-10, Starting on Wed12/06/24 at 1428, PACU (only), Look-alike/sound-alike medication - verify indication for use. Immediate release. oxyCODONE (ROXICODONE) immediate release tablet 5 mg(Linked Group 1) 5 mg, oral, Every 4 hours PRN, pain scale 1-6, Starting on Wed12/06/24 at 1428, PACU (only), Look-alike/sound-alike medication - verify indication for use. Immediate release. Order Group 1: oxyCODONE (ROXICODONE) immediate release tablet 5 mgJump to med 5 mg, oral, Every 4 hours PRN, pain scale 1-6, Starting on Wed12/06/24 at 1428, PACU (only), Look-alike/sound-alike medication - verify indication for use. Immediate release. Or oxyCODONE (ROXICODONE) immediate release tablet 10 mgJump to med 10 mg, oral, Every 4 hours PRN, severe pain - pain scale 7-10, Starting on Wed12/06/24 at 1428, PACU (only), Look-alike/sound-alike medication - verify indication for use. Immediate release. documented in this encounter Care Teams Team MemberRelationshipSpecialtyStart DateEnd Date Matt Uribe MD [address] [phone] PCP - GeneralInternal Qsozckfy22/21/25documented as of this encounter
--- OUTSIDE RECORDS SUMMARY | 2024-12-06 11:15 | XMS_ITS | Encounter Summary ---
Author Organization [facility] tem Address [id number] [address] [place] [address] Care Team Providers Care Associate Medical Director Name Role Phone Matt Uribe MD Primary Care Provider [phone] Reason for Visit * Auth/Cert (Routine)SpecialtyDiagnoses / ProceduresReferred By ContactReferred To Contact Diagnoses Ne pancreatic mass Procedures IN ESOPHAGOGASTRODUODENOSCOPY TRANSORAL DIAGNOSTIC ESOPHAGOGASTRODUODENOSCOPY DIAGNOSTIC ENDOSCOPIC ULTRASOUND UPPER Cintia Stephens MD [address] [place] [address], [address] [place] [address] Phone: tel: fax: Referral IDStatusReasonStart DateExpiration DateVisits RequestedVisits [id number] Encounter Details DateTypeDepartmentCare Team (Latest Contact Info)Swzlqsmuiin92/22/2025 12:15 PM EDT - 12/06/2024 1:45 PM EDTSurgery [facility] [address] [place] [phone] Cintia Stephens MD [address] [place] [address], [address] [place] [address] ESOPHAGOGASTRODUODENOSCOPY DIAGNOSTIC [27606 (CPT??)] Surgery Details Date/TimeStatusLocationORServicePatient ClassCase ClassCase TypeTrauma Case? 12/06/2024 12:15 PMPostedTOLEDO ENDOSCOPYENDO [facility] SurgeryElectivePanel 1 ProcedureLRBAnesOp RegionWound ClassComments ESOPHAGOGASTRODUODENOSCOPY DIAGNOSTICN/AGeneral ENDOSCOPIC ULTRASOUND UPPERN/AGeneral SurgeonSurgeon RoleServiceGerard, Cintia Scherer, MDPrimaryGastroenterology1 documented in this encounter Social History Tobacco UseTypesPacks/DayYears UsedDateSmoking Tobacco: [id number] - 2007Smokeless Tobacco: NeverAlcohol UseStandard Drinks/WeekCommentsNot Currently0 [...] InformationValueDate RecordedSex Assigned at Not on fileLegal EqdAyzx17/17/2025 1:53 PM EDTGender IdentityNot on fileSexual OrientationNot on filedocumented as of this encounter Last Filed Vital Signs Vital SignReadingTime TakenCommentsBlood Kzrkdcig381/8312/06/2024 11:04 AM EDT Briwe974112/06/2024 11:04 AM WBJGsejywniqsz89.7 ??C (98.1 ??F)12/06/2024 11:04 AM EDTRespiratory Zmtm847812/06/2024 11:04 AM EDTOxygen Uihiwgmsjo01%12/06/2024 11:04 AM EDTInhaled Oxygen Concentration--Weight--Height--Body Mass Index--documented in this [...] Patient Instructions After Upper EUSPatient[facility] [id number] Date: December 06ttending MD: Cintia Scherer. Christopher Doctor recommends:NoneGo directly to the emergency room if you notice any of the following: Chills and fever over 101 Persistent vomiting or vomiting with blood Severe abdominal pain, other than gas cramps Severe chest pain Black, tarry stools Any bleeding - exceeding one tablespoonIf you have any questions on the above instructions, please call the GI Lab. Nurse Signature Patient/Designated Responsible [employer] SignatureDr. Cintia Stephens, 12/07/2024 8:25:57 AM documented in this encounter Plan of Treatment Not on file documented as of this encounter Procedures Procedure NamePriorityDate/TimeAssociated DiagnosisCommentsNON-GYNECOLOGIC ZBQULOSFQgmasbw33/22/2025 1:47 PM EDT ENDOSCOPIC ULTRASOUND UPPER12/06/2024 1:12 PM EDT Ne pancreatic mass IN ESOPHAGOGASTRODUODENOSCOPY TRANSORAL MYDZWDSLPC69/22/2025 1:12 PM EDT Ne pancreatic mass ENDOSCOPIC ULTRASONOGRAPHY, GI UPPER12/06/2024 12:58 PM EDT PROVATION UPPER JWXJmkcznd24/22/2025 11:08 AM EDT documented in this encounter Results * Cytology non-gynecologic (12/06/2024 1:47 PM EDT)ComponentValueRef RangeTest MethodAnalysis TimePerformed AtPathologist SignatureCase ReportMedical Cytology Report ? Case: [id number] ? Authorizing Provider: ??Cintia Stephens MD ? Collected: ? 12/06/2024 1347 ? Ordering Location: ? [facility] ??Received: ?12/06/2024 1425 ? - Endoscopy ? Pathologist: ? Rodrigo Cody MD ? Specimens: ?? 1) - Liver, Left Hepatic Lobe ? 2) - Adrenal Gland, Left Adrenal Mass ? 3) - Pancreas, Pancreas Mass ? 12/11/2024 11:40 AM [facility] LABORATORYFinal Diagnosis1. Liver lesion, fine-needle aspiration: [...] atypical cells, suspicious for adenocarcinoma.12/11/2024 11:40 AM [facility] at 1140 EDTIntraoperative Consultation1. Liver fine needle aspirate: Pass 1: Positive for neoplasm 2. Adrenal fine needle aspirate: Pass 1: Positive for neoplasm Dr. Shae Cody Interpretation provided at [facility], [facility] [place] [address]. 12/11/2024 11:40 AM [facility] [place] LABORATORYGross Description1. Prepared in Endoscopy were 2 [...] time of 7 hours. 12/11/2024 11:40 AM [facility]ORYEmbedded Images 12/11/2024 11:40 AM [facility] LABORATORYSpecimen (Source)Anatomical Location / LateralityCollection Method / VolumeCollection TimeReceived TimeFine Needle AspirateLiver structure / Kdyqtxo1512/06/2024 1:47 PM EDT1 2:25 PM EDTComment:Pre-op diagnosis: Ne pancreatic massSpecimen obtained by fine needle aspiration procedure (specimen)Adrenal structure / Ghqxett2912/06/2024 1:54 PM EDT1 2:25 PM EDTComment:Pre-op diagnosis: Ne pancreatic massSpecimen obtained by fine needle aspiration procedure (specimen)Pancreatic structure / Xpzltos5012/06/2024 2:03 PM EDT1 2:25 PM EDTComment:Pre-op diagnosis: Ne pancreatic mass Narrative Authorizing ProviderResult TypeResult StatusAli T Nawras MDPATHOLOGY/CYTOLOGY ORDERABLESFinal ResultPerforming OrganizationAddressCity/State/ZIP CodePhone Number [facility] [address] [place] [address], [facility] [address] [place] [address], * Endoscopic Ultrasonography, GI Upper (12/06/2024 12:58 PM EDT)Specimen (Source)Anatomical Location / LateralityCollection Method / VolumeCollection TimeReceived Time12/06/2024 12:58 PM EDT Narrative PM CARDIOVASCULAR - 12/07/2024 8:26 AM EDT [facility] Patient Name: Angel Luis Davis ?? Procedure Date: 12/06/2024 12:58 PM ? CSN: [id number] Date of : 1945 Admit Type: Outpatient Age: 79 Room: [facility] END[facility] 06 Gender: Male Note Status: Finalized Attending MD: Cintia Stephens , , Procedure: ?Upper EUS Indications: ?History of lung cancer that was resected in ?2022. ?Pancreatic mass, liver mass, and adrenal mass. Providers: ?Cintia Stephens Luxcastro Ochoa MD Referring MD: ? Requesting Provider: ? [...] echoendoscope was ? then withdrawn and the [employer] video curvilinear array echoendoscope was ? introduced [...] Procedure Note Cintia Stephens MD - 12/07/2024 [facility] Patient Name: Angel Luis Davis Procedure Date: 12/06/2024 12:58 PM CSN: [id number] Date of : 1945 Admit Type: Outpatient Age: 79 Room: [place] [address] Gender: Male Note Status: Finalized Attending MD: [...] On: 12/06/2024 12:58 PM Authorizing ProviderResult TypeResult StatusCintia Stephens [facility] PROCEDURE ORDERABLESFinal ResultPerforming OrganizationAddressCity/State/ZIP CodePhone Number PM [...] to you in MyChart.* Authorizing ProviderResult TypeResult StatusAli T Angelo MDIMG OR IMG ORDERABLES Final Result documented in this encounter Visit Diagnoses Not on filedocumented in this encounter Administered Medications Medication OrderMAR [...] 1312 (New Bag - Provider: Bladimir Storey APRN-FARAZ) * 1432 (Due: Order Ending - Provider: Automatic Transfer Provider - Comment: [Order ends at this time. Document the following action when infusion is complete: Stop Bag]) Medication Order/ fentaNYL (SUBLIMAZE) injection 25 mcg 25 mcg, [...] MemberRelationshipSpecialtyStart DateEnd Date Matt Uribe MD 112 [facility], [address] [phone] PCP - GeneralInternal Ktozbtvx59/21/25documented as of this encounter
--- OUTSIDE RECORDS SUMMARY | 2024-12-06 12:12 | XMS_ITS | Encounter Summary ---
Author Organization [facility] tem Address [id number] [address] [place] [address] Care Team Providers Care Order Entry Administrator Name Role Phone Matt Uribe MD Primary Care Provider [phone] Reason for Visit * Auth/Cert (Routine)SpecialtyDiagnoses / ProceduresReferred By ContactReferred To Contact Diagnoses Ne pancreatic mass Procedures HI ESOPHAGOGASTRODUODENOSCOPY TRANSORAL DIAGNOSTIC ESOPHAGOGASTRODUODENOSCOPY DIAGNOSTIC ENDOSCOPIC ULTRASOUND UPPER Cintia Stephens MD [address] [place] [address], [address] [place] [address] Phone: tel: fax: Referral IDStatusReasonStart DateExpiration DateVisits RequestedVisits [id number] Encounter Details DateTypeDepartmentCare Team (Latest Contact Info)Yoxgrkcdeqk27/22/2025 1:12 PM EDTAnesthesia Event [facility] [address] [place] [id number] Demetria Little MD [address] [place] [address] Anesthesia Record Procedure NameResponsible AnesthesiologistAnesthesia Start TimeAnesthesia Stop TimeESOPHAGOGASTRODUODENOSCOPY DIAGNOSTICAdalie Little MD12/06/24 [id number]4/22/[id number] Lhiqq9115Tw Start Gptx4261Hs InductionThe patient was reevaluated immediately before moderate or deep sedation use and before anesthesia induction.1321An Sxzhecnbqq9647Bmpfarso4803 Patient Ready for Nttwatj0105Pm Arvuncmygk9126fc stop ptrn1133Hgwfqqxzd/Transfer From the GK0964Wyaaqsd to RNTransported to:PACU, Spontaneous Ventilation, O2 per Nasal Cannula, 2 LPM Pt. Tolerated procedure well, vital signs stable and document on nursing record Care transferred to receiving UG8225Dm Stop* Name Totalpropofol (DIPRIVAN) cofvntagi610 mglidocaine PF (XYLOCAINE) local injection 1%50 mgrocuronium (ZEMURON) 50 mg/5 mL kzvhochsz81 mgfentaNYL (SUBLIMAZE) lajajzuun424 mcgsuccinylcholine (ANECTINE) 20 mg/mL hqimegzrd00 mg ePHEDrine injection 50 mg/mL20 mglactated ringers infusion0 mL * Agents Name Sevoflurane Inspired Sevoflurane * Blood No blood administrations on file. TypeDetailsPlacementRemovalPeripheral IVPlacement Date: 12/06/24; Placement Time: 1108; Catheter Size: 20 G; Orientation: Anterior, Right; Location: Forearm; Site Prep: Chlorhexadine; Technique: Anatomical landmarks; Inserted by: kishan esposito RN; Insertion Attempts: 1; Patient Tolerance: Tolerated well; Removal Date: 12/06/24; Removal Time: 152; Removal Reason: Patient discharged 12/06/24 1108 by Aspen Fulton RN12/06/24 1522 by Che Chin RNETT Placement Date: 12/06/24; Placement Time: 1319 (created via procedure documentation); Mask Ventilation: Ventilated by mask; Type: Cuffed; Tube Size: 7.5 mm; Laryngoscope: Mac; Blade Size: 4; Location: Oral; Grade View: 1; Insertion Attempts: 1; Placement Verification: Auscultation; Removal Date: ; Removal Time: 1319 by JOVAN Zambrano12/06/24 1419 by Ramon Garcia in this encounter Social History Tobacco UseTypesPacks/DayYears UsedDateSmoking Tobacco: [id number] - 2007Smokeless Tobacco: NeverAlcohol UseStandard Drinks/WeekCommentsNot Currently0 [...] InformationValueDate RecordedSex Assigned at Not on fileLegal JshFvng76/17/2025 1:53 PM EDTGender IdentityNot on fileSexual OrientationNot on filedocumented as of this encounter OR Notes * Anesthesia Postprocedure Evaluation - Demetria Little MD - 12/06/2024 2:41 PM EDT ANESTHESIA POST-EVALUATION [facility] Procedure Summary Date: 12/06/24 Room / Location: [address] ENDOSCOPY; [facility] SurgeryInt Operative Anesthesia Start: 1311 Anesthesia Stop: 1433 Procedures: ESOPHAGOGASTRODUODENOSCOPY DIAGNOSTIC ENDOSCOPIC ULTRASOUND UPPER PROVATION UPPER EUS Diagnosis: (Ne pancreatic mass) Scheduled Providers: Cintia Stephens MD Responsible Provider: Demetria Little MD Anesthesia Type: general endotracheal ASA Status: 3 Vitals: 12/06/24 1435 BP: 123/90 Pulse: 61 Resp: 22 Temp: SpO2: 99% Patient Evaluated: PACU Patient Participation: Complete - patient participated Patient Level of Consciousness: Awake Pain Score: 0 Pain Management: Adequate Airway Patency: Patent Anesthetic Complications: No Cardiovascular Status: Hemodynamically Stable Respiratory Status: Stable/Baseline, Nonlabored Ventilation and Room Air Post-op Hydration: Euvolemic Final Anesthesia Type: general endotracheal Does patient meet criteria to D/C from PACU?: Yes Is patient sedated pharmacologically at PACU D/C?: No No notable events documented. * Anesthesia Procedure Notes - JOVAN Garcia - 12/06/2024 1:23 PM EDTAssociated Order(s): Airway Airway Patient location during procedure: OR Urgency: Elective Date/Time: 12/06/2024 1:19 PM Airway not difficult IV In Situ: Peripheral General Information and Staff Service Provider: Demetria Little MD HEAT AND FROST INSULATOR: JOVNA Zambrano Placed by: JOVAN Zambrano Patient Identified, IV Checked, Risks and Benefits Discussed, Surgical Consent, Monitors and Equipment Checked, Pre-op Evaluation and Timeout Performed Fire Risk Assessment Score: 0 Consent for Emergent Airway (if performed for an anesthetic, see related documentation for consents) Risks and benefits: risks, benefits and alternatives were discussed Indications and Patient Condition Sedation level: Deep Preoxygenated: yesPatient position: Supine and Sniffing MILS maintained throughout Mask difficulty assessment: Vent By Mask Indications for airway management: Anesthesia Complications: No Complicating Factors: No Final Airway Details Final airway type: ETT Endotracheal airway: Cuffed and ETT - Single Lumen Techniques used for successful ETT Placement: With Stylet Cormack-Lehane Classification: Grade I Endotracheal tube insertion site: Oral No Bite Block Placed Dentition Check Pre: Dentures/Partials Removed Post Intubation Trauma? No Visibility: Cords Clear Blade: Raymundo Blade size: #4 Placement verified by: chest auscultation ETT size: 7.5 mm Cuff volume (mL): 6 Measured from: Gums Secured at (cm): 23 Number of other approaches attempted: 0 Number of attempts at approach: 1 * Anesthesia Preprocedure Evaluation - Demetria Little MD - 12/06/2024 11:07 AM EDT Images from the original note were not included. ANESTHESIA PRE-PROCEDURE EVALUATION [facility] Procedure(s): ESOPHAGOGASTRODUODENOSCOPY DIAGNOSTIC ENDOSCOPIC ULTRASOUND UPPER ANESTHESIA PLAN ASA 3 Anesthesia Type: general endotracheal Induction: Intravenous Airway Management: Video Laryngoscopy and Endotracheal Tube Post op Pain Management: IV Analgesics PONV Plan: Intended use of opioids Post-op Transfer Plan: Transfer to PACU Plan discussed with HEAT AND FROST INSULATOR. 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 Last Echo: No results found. Last Cath: No results found. Last EKG: No results found. Holter: No results found. Chest X-ray: No results found. Last Carotid: No results found. Labs: @LABRCNT[wbc,hgb,hct,PLT@ @LABRCNT[Sodium,K,CL,CO2,BUN,CREATININE,CALCIUM,ALBUMIN,TOTALPROTEI,BILIRUBIN,AL KPHOS,ALT,AST,GLU@ No results found for: INR PMHX: Past Medical History: Diagnosis Date Anxiety Cataract removed bilat COPD (chronic obstructive pulmonary disease) ([facility]) Dental disease upper and lower dentures Depression HL (hearing loss) bilat aids Pancreatic mass 12/05/2024 Ne Shortness of breath Visual impairment glasses Past Surgical History: Procedure Laterality Date CHOLECYSTECTOMY COLONOSCOPY HERNIA REPAIR LUNG LOBECTOMY Right upper right lobe Social History Socioeconomic History Marital status: Spouse name: Not on file Number of children: Not on file Years of education: Not on file Highest education level: Not on file Occupational History Not on file Tobacco Use Smoking status: Former Current packs/day: 0.00 Average packs/day: 1 pack/day for 40.0 years (40.0 ttl pk-yrs) Types: Cigarettes Start date: 1966 Quit date: 2006 Years since quittin.8 Smokeless tobacco: Never Vaping Use Vaping status: Never Used Substance and Sexual Activity Alcohol use: Not Currently Drug use: Not Currently Sexual activity: Defer Other Topics Concern Not on file Social History Narrative Not on file Social Drivers of Health Financial Resource Strain: Not on file Food Insecurity: No Food Insecurity (12/05/2024) Hunger Screening Food Insecurity - Worry: Never True Food Insecurity - Inability: Never True Transportation Needs: Not on file Physical Activity: Not on file Stress: Not on file Social Connections: Not on file Interpersonal Safety: Not on file Housing Instability: Not on file No Known Allergies There is no problem list on file for this patient. Risk Factors: PONV: Low Risk Total Score: 1 Score Rules Non-smoker Criteria that do not apply: Female patient History of PONV and/or Motion Sickness Intended opioid administration RCRI: Low Risk: Score of 0 = 3.9% (2.8-5.4%) Risk of major cardiac event Score of 1 = 6.0% (4.9-7.4%) Risk of major cardiac event Total Score: 0 Score Rules Criteria that do not apply: Cerebrovascular Disease Ischemic Heart Disease Congestive Heart Failure Elevated Risk Surgery Pre-operative Treatment with Insulin Pre-operative Creatinine >2 mg/dL / 176.8 mol/L There is no problem list on file for this patient. documented in this encounter Plan of Treatment Not on file documented as of this encounter Procedures Procedure NamePriorityDate/TimeAssociated DiagnosisCommentsPR AN ELECTIVE ENDOTRACHEAL UEPKNRRxwzysg61/22/2025 1:19 PM EDT documented in this encounter Results * HI AN ELECTIVE ENDOTRACHEAL AIRWAY (12/06/2024 1:19 PM EDT) Narrative Bladimir Storey APRN-CRNA - 12/06/2024 1:19 PM EDT JOVAN Garcia 12/06/2024 1:25 PM Airway Patient location during procedure: OR Urgency: Elective Date/Time: 12/06/2024 1:19 PM Airway not difficult IV In Situ: Peripheral General Information and Staff Service Provider: Demetria Little MD HEAT AND FROST INSULATOR: JOVAN Zambrano Placed by: ??JOVAN Zambrano Patient Identified, IV Checked, Risks and Benefits Discussed, Surgical Consent, Monitors and Equipment Checked, Pre-op Evaluation and Timeout Performed Fire Risk Assessment Score: 0 Consent for Emergent Airway (if performed for an anesthetic, see related documentation for consents) Risks and benefits: risks, benefits and alternatives were discussed Indications and Patient Condition Sedation level: Deep Preoxygenated: yesPatient position: Supine and Sniffing MILS maintained throughout Mask difficulty assessment: Vent By Mask Indications for airway management: Anesthesia Complications: No Complicating Factors: No Final Airway Details Final airway type: ETT Endotracheal airway: Cuffed and ETT - Single Lumen Techniques used for successful ETT Placement: With Stylet Cormack-Lehane Classification: Grade I Endotracheal tube insertion site: Oral No Bite Block Placed Dentition Check Pre: Dentures/Partials Removed Post Intubation Trauma? No Visibility: ??Cords Clear Blade: Raymundo Blade size: #4 Placement verified by: chest auscultation ETT size: 7.5 mm Cuff volume (mL): 6 Measured from: Gums Secured at (cm): 23 Number of other approaches attempted: 0 Number of attempts at approach: 1 Authorizing ProviderResult TypeResult StatusAdalie Little MDANESTHESIA ORDERABLESFinal Result documented in this encounter Visit Diagnoses Not on filedocumented in this encounter Administered Medications Medication OrderMAR ActionAction DateDoseRateSite ePHEDrine sulfate injection intravenous, As needed, Starting on Wed12/06/24 at 1349, Anesthesia Intra-op Given12/06/2024 1:51 PM EDT5 myNxuae3512/06/2024 1:50 PM EDT10 ewLzrle4112/06/2024 1:49 PM EDT5 mg fentaNYL (SUBLIMAZE) injection intravenous, As needed, Starting on Wed12/06/24 at 1318, Anesthesia Intra-op Given12/06/2024 1:18 PM TVB026 mcg lactated ringers infusion 20 mL/hr, intravenous, Continuous, Starting on Wed12/06/24 at 1115, Pre-op, If fluid restriction is not indicated, infuse at a rate up to 5 mL/kg/hr not to exceed the total replacement volume (2 ml/kg/hr) from the time NPO status was initiated. New Bag12/06/2024 1:12 PM EDT lidocaine PF (XYLOCAINE) 10 mg/mL (1 %) injection intravenous, As needed, Starting on Wed12/06/24 at 1319, Anesthesia Intra-op Given12/06/2024 1:19 PM EDT50 mg propofoL (DIPRIVAN) infusion intravenous, As needed, Starting on Wed12/06/24 at 1320, Anesthesia Intra-op Given12/06/2024 1:20 PM XJJ956 mg rocuronium (ZEMURON) injection intravenous, As needed, Starting on Wed12/06/24 at 1320, Anesthesia Intra-op Given12/06/2024 1:20 PM EDT10 mg succinylcholine (ANECTINE) injection intravenous, As needed, Starting on Wed12/06/24 at 1320, Anesthesia Intra-op Given12/06/2024 1:20 PM EDT80 mgdocumented in this encounter Care Teams Team MemberRelationshipSpecialtyStart DateEnd Date Matt Uribe MD [address] [facility] [address] [place] [id number] PCP - GeneralInternal Gmndzled26/21/25documented as of this encounter
--- OUTSIDE RECORDS SUMMARY | 2024-12-13 11:34 | XMS_ITS | Continuity of Care Document ---
Author Organization [facility] Address [address] [place] [address] Phone Care Team Providers Care Lapping Machine Set Up Operator Name Role Phone Matt Uribe II Primary Care Provider Prerna Wesley DO Emergency Provider Care Teams Patient Care Team Team Status: Active Member Role/Relationship Status Dates Matt Uribe II MD Primary Care Provider Active Visit Care Team Team Status: Inactive Member Role/Relationship Status Dates Matt Uribe II MD Primary Care Provider Active Start: December 13, 2024 End: December 13, 2024Anders Qureshi ProviderActiveStart: December 13, 2024 End: December 13, 2024 Chief Complaint and Reason for Visit Chief Complaint Admit Date back pain, coughing blood, hx cancer pat ient December 13, 2024 11:17am Allergies, Adverse Reactions, Alerts Allergen Type Severity Reaction Last Updated Verified Status No Known Allergies Allergy Unknown December 13, 2024 11:27amYesActive Social History Smoking Status Status Start Date End Date Date of Observa tion Never smoked tobacco (finding) December 13, 2024 2:31pm Observation Status Observation Response Date of Response Legal Sex Male (finding) Sex Assigned At [facility] 1945 Problems Active Problems Problem Diagnosis/Recorded Date Onset Date Stat us Cancer, metastatic December 13, 2024 3:28pm Unknown Active Medications Medication Status Dose Units Route Directions Qty Days Refills S tart Date Stop Date End Date Reason(s) Instructions Adherence Oxycodone 5 mg capsule Active 5 MG PO EVERY 4-6 HOURS as needed for pain 20 5 0 December 13, 2024 Metastatic malignant neoplasm Secondary malignant neoplasm of unspecified siteUnknown Procedures Procedure Date Performed Status XR chest 1V portable December 13, 2024 1:39pm c ompleted Relevant Diagnostic Tests and/or Laboratory Data Laboratory Results Test Collection Date/Time Result Date/Time Result Interpretation Reference Range Result Comment Performing Site Corrected White Blood Count December 13, 2024 1:16pm December 13, 2024 1:32pm 8.5 10*3/uL 4.1-10.5[facility] [id number] [address] [facility] 74353Piqflgwkmwg WBC CountOctober 2024 1:16pmOctober 2024 1:32pm8.5 10*3/uL4.1-10.5[facility] [id number] [address] [place] [address] 94999Iga Blood CountOctober 2024 1:16pmOct2024 1:32pm3.96 10*6/uL3.90-5.60[facility] [id number] [address] [facility] 94978JnovvnytzxVtchnkn 2024 1:16pmOct2024 1:32pm 12.2 g/dLBelow low zcefjv57.0-17.0[facility] [id number] [address] [place] [address] 96510HyrwrvebvtDscvaig 2024 1:16pmOctober 2024 1:32pm 35.9 %Below low .8-50.0[facility] [id number] [address] [place] [address] 96465Izfe Corpuscular VolumeOctober 2024 1:16pmOctober 2024 1:32pm90.7 fL83.5-101[facility] [id number] [address] [place] [address] 85310Bkvv Corpuscular HemoglobinOctober 2024 1:16pmOctober 2024 1:32pm30.8 pg27.5-35.2[facility] [id number] [address] [facility] 06468Jsph Corpuscular Hemoglobin ConcentOctober 2024 1:16pm December 13, 2024 1:32pm34.0 g/dL32.5-35.6[facility] [id number] [address] [place] [address] 76025Pvn Cell Distribution WidthOctober 2024 1:16pmOctober 2024 1:32pm14.0 %12.0-14.8[facility] [id number] [address] [facility] 57149Fxdslwya CountOctober 2024 1:16pmOctober 2024 1:10if288 10*3/hN255-304UilsuwzztPromedica [facility] [id number] [address] [place] [address] 71066Jrpw Platelet VolumeOctober 2024 1:16pmOctober 2024 1:32pm8.0 fL6.6-10.1[facility] [id number] [address] [place] [address] 42952Jrkfsrqu Distribution WidthOctober 2024 1:16pmOctober 2024 1:32pm19.92 %0.00-20.00[facility] [id number] [address] [place] [address] 94537Virlqmtqthx (%) (Auto)December 13, 2024 1:16pmOctober 2024 1:32pm78.9 %.[facility] [id number] [address] [place] [address] 79505Qudwljgqnzr (%) (Auto)December 13, 2024 1:16pmOctober 2024 1:32pm9.2 %.[facility] [id number] [address] [place] [address] 85847Xfouwptum (%) (Auto)December 13, 2024 1:16pmOctober 2024 1:32pm9.9 %.[facility] [id number] [address] [place] [address] 75966Jmwqhtcltdr (%) (Auto)December 13, 2024 1:16pmOctober 2024 1:32pm1.0 %.[facility] [id number] [address] [facility] 66963Aapxrfsyk (%) (Auto)December 13, 2024 1:16pmOctober 2024 1:32pm1.0 %.[facility] [id number] [address] [facility] 61878Zqthtcqjz RBC Relative Count (auto)December 13, 2024 1:16pm December 13, 2024 1:32pm0.1 /100{WBC}0-0.5[facility] [id number] [address] [facility] 76046Ieoftedntko # (Auto)December 13, 2024 1:16pmOctober 2024 1:32pm6.7 10*3/uL1.8-7.7[facility] [id number] [address] [place] [address] 41751Mnyxlqnivmr # (Auto)December 13, 2024 1:16pmOctober 2024 1:32pm0.8 10*3/uLBelow low normal1.00-4.8[facility] [id number] [address] [facility] 75812Uhczkciig # (Auto)December 13, 2024 1:16pmOctephraim [facility] 2024 1:32pm0.8 10*3/uL0.0-0.8[facility] [id number] [address] [facility] 14604Suzasjkkaoh # (Auto)December 13, 2024 1:16pmOctober 2024 1:32pm0.1 10*3/uL0.0-0.45[facility] [id number] [address] [facility] 97970Yxkpzymkz # (Auto)December 13, 2024 1:16pmOctober 2024 1:32pm0.1 10*3/uL0.0-0.2[facility] [id number] [address] [facility] 44988Plnizpz LevelOctober 2024 1:16pmOctober 2024 1:52pm 115 mg/dLAbove high kelwpg21-665BLV recommended reference rangeRandom Glucose Reference Range is dependent on time and content of last meal. Glucose of more than 200 mg/dL in a nonstressed, ambulatory subject supports the diagnosisof Diabetes Mellitus.[facility] [id number] [address] [facility] 77762Mzslu Urea NitrogenOctober 2024 1:16pmOctober 2024 1:52pm19 mg/dL7-25[facility] [id number] [address] [facility] 04469JzagwbljfjXjksgwz 2024 1:16pmOctober 2024 1:52pm 0.65 mg/dLBelow low normal0.70-1.30[facility] [id number] [address] [facility] 29409Pqdhuqxnl GFR (CKD-EPI)December 13, 2024 1:16pmOctober 2024 1:52pm> 60.0 mL/MinPromedica Bay Park Hospital [facility]tr [id number] [address] [facility] 56088Pfiuqx LevelOctober 2024 1:16pmOctober 2024 1:52pm 135 mmol/LBelow low -440TmstbrkgcPromedica Bay [facility] [id number] [address] [facility] 83492Qzdqrmnck LevelOctober 2024 1:16pmOctober 2024 1:52pm4.4 mmol/L3.5-5.1[facility] [id number] [address] [facility] 25291Dlawmble LevelOctober 2024 1:16pmOctober 2024 1:52pm99 mmol/A41-602DecljefjnPromedica Bay Park Hospital [facility] [id number] [address] [facility] 03889Eskvii Dioxide LevelOctober 2024 1:16pmOctober 2024 1:52pm28.3 mmol/L21.0-31.0[facility] [id number] [address] [facility] 83635Ihisk GapOctober 2024 1:16pmOctober 2024 1:52pm12.1 mEq/L6.0-15.0[facility] [id number] [address] [facility] 58464Oymbmne LevelOctober 2024 1:16pmOctober 2024 1:52pm 9.4 mg/dL8.6-10.3[facility] [id number] [address] [facility] 89513Fucbm ProteinOctober 2024 1:16pmOct2024 1:52pm 6.8 g/dL6.4-8.9[facility] [id number] [address] [facility] 58131XhacffvDergijw 2024 1:16pmOctober 2024 1:52pm3.6 g/dL3.5-5.7[facility] [id number] [address] [facility] 41011SlethzdjMipnayo 2024 1:16pmOctober 2024 1:52pm3.2 g/dLPromedica Bay Park Hospital [facility] [id number] [address] [place] [address] 44215Gtjujeb/Globulin RatioOctober 2024 1:16pmOct2024 1:52pm1.1[facility] [id number] [address] [place] [address] 38155Usmpv BilirubinOctober 2024 1:16pmOctober 2024 1:52pm0.8 mg/dL0.3-1.0[facility] [id number] [address] [facility] 86827Kadbzugbj Amino Transf (AST/SGOT)December 13, 2024 1:16pm December 13, 2024 1:52pm17 U/G23-83TlsilecujPromedica Bay Park Hospital [facility] [id number] [address] [place] [address] 36379Cpnqckg Aminotransferase (ALT/SGPT)December 13, 2024 1:16pm December 13, 2024 1:52pm23 U/L7-52[facility] [id number] [address] [facility] 23572Jnwabcsn PhosphataseOct2024 1:16pmOctober 2024 1:52pm99 U/P69-902LpfrdmjffPromedica Bay Park Hospital [facility] [id number] [address] [place] [address] 80588UvnmgxJtmcnyw 2024 1:16pmOctober 2024 1:52pm28.0 U/L11.0-82.0[facility] [id number] [address] [place] [address] 81407Cdldrszu Creatinine Clearance (ChemOctober 2024 1:16pm December 13, 2024 1:52pm65.91[facility] [id number] [address] [place] [address] 50796 Diagnostic Imaging Reports Author Sameer Khan [facility] CenterReport Date/TimeOctober 2024 1:58pm [facility] Main [place] [address] [place], [place] [id number] XRay Report Signed Patient: Angel Luis Davis MR#: [id number] : 1945 Acct:[id number] Age/Sex: 79 / M ADM Date: 5 Loc: ER Room: Type: [facility] ER Attending Dr: Copies to: Prerna Wesley Do~ Ordering Provider: Prerna Wesley Do Date of Service: 12/13/24 XR/XR chest 1V portable: Back Pain/Injury SINGLE VIEW CHEST CLINICAL HISTORY: Coughing up blood. History of pancreatic cancer. COMPARISON: Chest 02/13/2021 FINDINGS: Heart normal in size. Bullous changes involving the right lung. No consolidation pneumothorax pleural effusion or mass. No free air. XR/XR chest 1V portable IMPRESSION: BULLOUS CHANGES. NO ACUTE PROCESS. Impression dictated by: Sameer Khan Jr., D.O. 12/13/2024 1:58 PM Dictation Location: [place] [address] Transcribed By: [facility] 12/13/24 1358 Dictated By: Sameer Khan Jr, DO 12/13/24 1357 Signed By: <Electronically signed by Sameer Khan Jr, DO in OV> 12/13/24 1358 Vital Signs Vital Reading Result Reference Range Collection Date/Time Height 72 [in_i] December 13, 2024 11:41otRnwdqi79.23 kgOctober 29th, 2025 11:36amBody Ypiftdkoeyk08.3 [degF]97.6-99.0[facility] 2024 11:36amHeart Rate61 /jxj71-232 December 13, 2024 4:15pmRespiratory rate20 /bql74-92Hjndgxz 2024 4:15pm Oxygen saturation by Pulse zreqehlc60 %95-100Octephra[facility] 2024 4:15pmBP Iqhyscqi835 mm[Hg]100-140Octephraim [facility] 2024 4:15pmBP Desmbsydg42 mm[Hg]60-100 December 13, 2024 4:15pm Advance Directives Advance Directive Response Recorded Date/ Time Advance Directives No December 13, 2024 1:22pm Insurance Providers Guarantor Angel Luis Davis Address [address] [facility] [address]Wycpsao Info.Home Phone: Coverage Status Update:2024 Payer Group Member ID Coverage Type Subscriber Relationship to Subscriber Effective Date Expiration Date Medicare [id number] G Ryan Id: [id number] [address] [facility] [address] Home Phone: SelfRegular Insurance [address] [address] [place] [address] Work Phone: Id: PLAN [id number] G Ryan Id: [id number] [address] [facility] [address] Home Phone: Self Encounters Encounter Location(s) Arrival/Admit Date Discharge/Departure Date Discharge/Departure Disposition Provider(s) Departed Emergency -Emergency Room December 13, 2024 11:17am December 13, 2024 4:20pm Discharged to home care or self care (routine discharge) Plan of Treatment Future Tests Future scheduled test information is unavailable Pending Tests Pending diagnostic test information is unavailable Future Visits Future appointment information is unavailable Future Procedures Future procedure information is unavailable Future Medications Future medication information is unavailable Patient Instructions Instruction Admit Date Stages of Cancer December 13, 2024 1 1:17am
--- OUTSIDE RECORDS SUMMARY | 2024-12-18 13:27 | XMS_ITS | Encounter Summary ---
Author Organization [facility] [employer] s tem Address [id number] [address] [place] [address] Care Team Providers Care Handstitching Machine Armhole Feller Name Role Phone Matt Uribe MD Primary Care Provider [phone] Encounter Details DateTypeDepartmentCare Team (Latest Contact Info)Ekacrtkdbko61/22/2025Travel Social History Tobacco UseTypesPacks/DayYears UsedDateSmoking Tobacco: [id number] - 2006Smokeless Tobacco: NeverAlcohol UseStandard Drinks/WeekCommentsNot Currently0 (1 standard [...] InformationValueDate RecordedSex Assigned at Not on fileLegal PdbJfud92/17/2025 1:53 PM EDTGender IdentityNot on fileSexual OrientationNot on filedocumented as of this encounter Plan of Treatment Not on file documented as of this encounter Visit Diagnoses Not on filedocumented in this encounter Care Teams Team MemberRelationshipSpecialtyStart DateEnd Date Matt Uribe MD [address] [facility], [facility] [address] [place] [address] PCP - GeneralInternal Lseskrfv30/21/25documented as of this encounter
--- OUTSIDE RECORDS SUMMARY | 2024-12-18 13:27 | XMS_ITS | Encounter Summary ---
Author Organization [facility] Address [address] [place] [address] Care Team Providers Care Mid Level Business Analyst Name Role Phone Unavailable Primary Care Provider Unavailabl e Encounter Details DateTypeDepartmentCare Team (Latest Contact Info)Lswqwusqwsd85/17/2025Orders Only [facility] [address] [place] [address] Provider, MD Demetrius [address] [place] [address] Social History Tobacco UseTypesPacks/DayYears UsedDateSmoking Tobacco: Never AssessedSex and Gender InformationValueDate RecordedSex Assigned at PbibjBics18/23/2025 10:26 AM EDTLegal NohQjjf8708/13/2021 10:32 PM EDTGender HqfyjrieVhzp04/23/2025 10:26 AM EDTSexual OrientationDon't know12/07/2024 10:26 AM EDTdocumented as of this encounter Plan of Treatment Not on file documented as of this encounter Procedures Procedure NamePriorityDate/TimeAssociated DiagnosisCommentsEUS (UPPER) W/ EGD Jncaaer0212/01/2024 11:40 AM EDTdocumented in this encounter Results * EUS (Upper) w/ EGD Intervention(s): (12/01/2024 11:40 AM EDT)Anatomical Region LateralityModalityEndoscopy Narrative Authorizing ProviderResult TypeResult StatusHistorical Provider MDENDOSCOPY PROCEDURE ORDERABLESFinal Result documented in this encounter Visit Diagnoses Not on filedocumented in this encounter
--- OUTSIDE RECORDS SUMMARY | 2024-12-18 13:27 | XMS_ITS | Encounter Summary ---
Author Organization [facility] [employer] s tem Address [id number] [address] [place] [address] Care Team Providers Care Fishing Vessel Operator Name Role Phone Matt Uribe MD Primary Care Provider [phone] Encounter Details DateTypeDepartmentCare Team (Latest Contact Info)Qzfbeciyaro84/21/2025Travel Social History Tobacco UseTypesPacks/DayYears UsedDateSmoking Tobacco: KqhsdgQghtwutauc3011614 - 2006Smokeless Tobacco: NeverAlcohol UseStandard Drinks/WeekCommentsNot Currently0 [...] InformationValueDate RecordedSex Assigned at Not on fileLegal KvnSjjp38/17/2025 1:53 PM EDTGender IdentityNot on fileSexual OrientationNot on filedocumented as of this encounter Plan of Treatment Not on file documented as of this encounter Visit Diagnoses Not on filedocumented in this encounter Care Teams Team MemberRelationshipSpecialtyStart DateEnd Date Matt Uribe MD [address] [facility], [facility] [address] [place] [address] PCP - GeneralInternal Fzanmzou81/21/25documented as of this encounter
--- OUTSIDE RECORDS SUMMARY | 2024-12-18 13:27 | XMS_ITS | Clinical Summary ---
Author Organization [facility] tem Address [id number] [address] [place] [address] Care Team Providers Care Compass Operator Name Role Phone Matt Uribe MD Primary Care Provider [phone] Allergies No known active allergies Medications MedicationSigDispense QuantityRefillsLast FilledStart DateEnd DateStatus albuterol (PROVENTIL,VENTOLIN) 2.5 mg /3 mL (0.083 %) nebulizer solution 3 mL (2.5 mg total) Three times daily as needed.5Active ALPRAZolam (XANAX) 0.25 mg tablet Take 1 tablet (0.25 mg total) by mouth every 8 (eight) hours as needed for anxiety.5Active DULoxetine (CYMBALTA) 60 mg capsule Indications:anxiety with depressionTake 1 capsule (60 mg total) by mouth in the morning. Indications: anxiousness associated with depression.5Active amoxicillin-pot clavulanate (AUGMENTIN) 875-125 mg per tablet Take 1 tablet by mouth in the morning and 1 tablet before bedtime.12/01/2024 12/11/2024Expired HYDROcodone-acetaminophen (NORCO) 5-325 mg per tablet Take 1 tablet by mouth every 6 (six) hours as needed.Expired Active Problems No known active problems Encounters DateTypeDepartmentCare WgkeMuppdygiwpy07/22/2025 1:12 PM EDTAnesthesia Event [facility] - Endoscopy [address] [place] [phone] Demetria Little MD 12/06/2024 12:15 PM EDT - 12/06/2024 1:45 PM EDTSurgery [facility] [address] [place] [phone] Cintia Stephens MD ESOPHAGOGASTRODUODENOSCOPY DIAGNOSTIC [96020 (CPT??)]12/06/2024 10:26 AM EDT - 12/06/2024 3:56 PM EDTHospital Encounter [facility] Surgery [address] [place] [address]. [place] [phone] Cintia Stephens MD Pancreatic mass (Primary Dx) Discharge Disposition: Home12/06/20242041Fdnfjp50/21/2025 2:00 PM EDTSupport Visit [facility] On [address] [phone] 12/05/2024Travelfrom Last 3 Months Family History Medical HistoryRelationNameCommentsAnesthesia problemsNeg Hx Social History Tobacco UseTypesPacks/DayYears UsedDateSmoking Tobacco: CxuhpkKfkqqazzbg8171420 - 2007Smokeless Tobacco: Never Tobacco Cessation:Counseling Given: [...] ValueDate RecordedSex Assigned at BirthNot on fileLegal GdoQjvb03/17/2025 1:53 PM EDTGender IdentityNot on fileSexual OrientationNot on file Last Filed Vital Signs Vital SignReadingTime TakenCommentsBlood Rcukxezk809/7512/06/2024 3:05 PM EDT Rtarw274612/06/2024 3:10 PM EPKXfkdmmdsjbg89.3 ??C (97.3 ??F)12/06/2024 2:35 PM EDTRespiratory Ehch8413 3:10 PM EDTOxygen Helqknhgel04%12/06/2024 3:10 PM EDTInhaled Oxygen Concentration--Zvcqmw32.2 kg (135 lb)12/05/2024 3:17 PM EDT Hzfnhj057.9 cm (6')12/05/2024 3:17 PM EDTBody Mass Index18.311 3:17 PM EDT Plan of Treatment Health MaintenanceDue DateLast DoneCommentsDepression Lyffxaldx92/04/1959 DTaP,Tdap and Td Vaccines (1 - Tdap)1965Zoster (Shingles) Vaccine (1 of 2) 1996Fall Risk Zzztcckbp08/04/2012RSV ( or age 60+ yrs) (1 - 1-dose 75+ series)2021Influenza Iutpuay7410/16/2024Tobacco Akxjsoxzk97/22/2026 12/06/2024 Medical Devices Not on file Procedures Procedure NamePriorityDate/TimeAssociated DiagnosisCommentsNON-GYNECOLOGIC OFPHRYNJQibybvm60/22/2025 1:47 PM EDT [place] AN ELECTIVE ENDOTRACHEAL VWCHYCWegncgq21/22/2025 1:19 PM EDT ENDOSCOPIC ULTRASOUND UPPER12/06/2024 1:12 PM EDT Ne pancreatic mass [place] ESOPHAGOGASTRODUODENOSCOPY TRANSORAL YMVFPVBMRS20/22/2025 1:12 PM EDT Ne pancreatic mass ENDOSCOPIC ULTRASONOGRAPHY, GI UPPER12/06/2024 12:58 PM EDT PROVATION UPPER YDCKwewbhi28/22/2025 11:08 AM EDT from Last 3 Months Results * Cytology non-gynecologic (12/06/2024 1:47 PM EDT)ComponentValueRef RangeTest MethodAnalysis TimePerformed AtPathologist SignatureCase ReportMedical Cytology Report ? Case: [id number] ? Authorizing Provider: ??Cintia Stephens MD ? Collected: ? 12/06/2024 1347 ? Ordering Location: ? [facility] ??Received: ?12/06/2024 1425 ? - Endoscopy ? Pathologist: ? Rodrigo Yaritza Cody, MD ? Specimens: ?? 1) - Liver, Left Hepatic Lobe ? 2) - Adrenal Gland, Left Adrenal Mass ? 3) - Pancreas, Pancreas Mass ? 12/11/2024 11:40 AM [facility] LABORATORYFinal Diagnosis1. Liver lesion, fine-needle aspiration: [...] atypical cells, suspicious for adenocarcinoma.12/11/2024 11:40 AM [facility] at 1140 EDTIntraoperative Consultation1. Liver fine needle aspirate: Pass 1: Positive for neoplasm 2. Adrenal fine needle aspirate: Pass 1: Positive for neoplasm Dr. Shae Cody Interpretation provided at [facility], [address] [place] [address]. 12/11/2024 11:40 AM [facility] LABORATORYGross Description1. Prepared in Endoscopy were 2 [...] time of 7 hours. 12/11/2024 11:40 AM [facility] LABORATORYEmbedded Images 12/11/2024 11:40 AM [facility] LABORATORYSpecimen (Source)Anatomical Location / LateralityCollection Method / VolumeCollection TimeReceived TimeFine Needle AspirateLiver structure / Nkekomh1912/06/2024 1:47 PM EDT1 2:25 PM EDTComment:Pre-op diagnosis: Ne pancreatic massSpecimen obtained by fine needle aspiration procedure (specimen)Adrenal structure / Kerfaeb2512/06/2024 1:54 PM EDT1 2:25 PM EDTComment:Pre-op diagnosis: Ne pancreatic massSpecimen obtained by fine needle aspiration procedure (specimen)Pancreatic structure / Czsiwpy3512/06/2024 2:03 PM EDT1 2:25 PM EDTComment:Pre-op diagnosis: Ne pancreatic mass Narrative Authorizing ProviderResult TypeResult StatusAli T Nawras MDPATHOLOGY/CYTOLOGY ORDERABLESFinal ResultPerforming OrganizationAddressCity/State/ZIP CodePhone Number [facility] [address] [place] [address], [facility] [address] [place] [address], * [place] AN ELECTIVE ENDOTRACHEAL AIRWAY (12/06/2024 1:19 PM EDT) Narrative Bladimir Storey APRN-CRNA - 12/06/2024 1:19 PM EDT JOVAN Garcia 12/06/2024 1:25 PM Airway Patient location during procedure: OR Urgency: Elective Date/Time: 12/06/2024 1:19 PM Airway not difficult IV In Situ: Peripheral General Information and Staff Service Provider: Demetria Little MD MARKETING LIAISON: JOVAN Zambrano Placed by: ??JOVAN Zambrano Patient [...] attempts at approach: 1 Authorizing ProviderResult TypeResult StatusAdrianus Yaritza Little MDANESTHESIA ORDERABLESFinal Result * Endoscopic Ultrasonography, GI Upper (12/06/2024 12:58 PM EDT)Specimen (Source)Anatomical Location / LateralityCollection Method / VolumeCollection TimeReceived Time12/06/2024 12:58 PM EDT Narrative PM CARDIOVASCULAR - 12/07/2024 8:26 AM EDT [facility] Patient Name: Angel Luis Davis ?? Procedure Date: 12/06/2024 12:58 PM ? CSN: [id number] Date of : 1945 Admit Type: Outpatient Age: 79 Room: [place] [address] Gender: Male Note Status: Finalized Attending MD: Cintia Stephens , , Procedure: ?Upper EUS Indications: ?History of lung cancer that was resected in ?2022. ?Pancreatic mass, liver mass, and adrenal mass. Providers: ?[facility] Referring MD: ? Requesting Provider: ? [...] echoendoscope was ? then withdrawn and the [employer] video curvilinear array echoendoscope was ? introduced [...] Procedure Note Cintia Stephens MD - 12/07/2024 [facility] Patient Name: Angel Luis Davis Procedure Date: 12/06/2024 12:58 PM CSN: [id number] Date of : 1945 Admit Type: Outpatient Age: 79 Room: [place] [address] Gender: Male Note Status: Finalized Attending MD: [...] Stephens MDIMG OR IMG ORDERABLES Final Result from Last 3 Months Insurance Care Teams Team MemberRelationshipSpecialtyStart DateEnd Matt Uribe MD [address] [place] [phone] PCP - GeneralInternal Npdzoxim48/21/25
--- OUTSIDE RECORDS SUMMARY | 2024-12-18 13:28 | XMS_ITS | Clinical Summary ---
Author Organization [facility] Address [address] [place] [address] Care Team Providers Care Patient Registrar Name Role Phone Unavailable Primary Care Provider Unavailabl e Encounters DateTypeDepartmentCare FriwSzxkfkgxgqw79/29/2025Telephone [facility] [place] [address] Hailee Barahona, MUNIRA 12/01/2024Telephone [facility] [address] [place] [address] Hailee Barahona, MUNIRA 12/01/2024Orders Only [facility] [address] [place] [address] [place] [phone] Provider, MD Demetrius from Last 3 Months Social History Tobacco UseTypesPacks/DayYears UsedDateSmoking Tobacco: Never AssessedSex and Gender InformationValueDate RecordedSex Assigned at NieswYero08/23/2025 10:26 AM EDTLegal RkhCyms7608/13/2021 10:32 PM EDTGender YuzqsmqbCpni64/23/2025 10:26 AM EDTSexual OrientationDon't know12/07/2024 10:26 AM EDT Plan of Treatment Health MaintenanceDue DateLast DoneCommentsDiabetes: Hemoglobin A1C1945 Medicare Annual Wellness (AWV)1945Diabetes: Retinopathy Screening 1956Depression Gajcpxzmw61/04/1959Pneumococcal Vaccine: 50+ Years (1 of 2 - PCV)1965Adult Uznrpom0911/18/1968Zoster Vaccines (1 of 2)1996Fall Risk Asuzpqnyw22/04/2012COVID-19 Vaccine ( - 2025-26 season)2024Influenza Vaccine (#1)2024Diabetes: Urine Protein Nqpwonrsq06 BumqfsevfvfNfwopomgwcci03/30/2017Colorectal Cancer ScreeningDiscontinuedCT ColonographyDiscontinuedFIT-DNADiscontinuedFITDiscontinuedFOBTDiscontinuedHIB VaccinesAged OutNo longer eligible based on patient's age to complete this topic HPV VaccinesAged OutNo longer eligible based on patient's age to complete this topicIPV VaccinesAged OutNo longer eligible based on patient's age to complete this topicMeningococcal B VaccineAged OutNo longer eligible based on patient's age to complete this topicMeningococcal VaccineAged OutNo longer eligible based on patient's age to complete this topicRotavirus VaccinesAged OutNo longer eligible based on patient's age to complete this topicSigmoidoscopyDiscontinued Procedures Procedure NamePriorityDate/TimeAssociated DiagnosisCommentsEUS (UPPER) W/ EGD Fqsqvoq5912/01/2024 11:40 AM EDTfrom Last 3 Months Results * EUS (Upper) w/ EGD Intervention(s): (12/01/2024 11:40 AM EDT)Anatomical Region LateralityModalityEndoscopy Narrative Authorizing ProviderResult TypeResult StatusHistorical Provider MDENDOSCOPY PROCEDURE ORDERABLESFinal Result from Last 3 Months Insurance * Guarantor: Angel Luis DavisAccount TypeRelation to PatientDate of BirthPhone Billing AddressPersonal/GqubhiZugs39[birth year][address] [address]
--- OUTSIDE RECORDS SUMMARY | 2024-12-18 13:28 | XMS_ITS | Encounter Summary ---
Author Organization [facility] Address [address] [place] [address] Care Team Providers Care Kettle Loader Name Role Phone Unavailable Primary Care Provider Unavailabl e Encounter Details DateTypeDepartmentCare Team (Latest Contact Info)Gnslhtyffzg12/29/2025Telephone [facility] [address] [place] [address] Hailee Baraohna, RN Social History Tobacco UseTypesPacks/DayYears UsedDateSmoking Tobacco: Never AssessedSex and Gender InformationValueDate RecordedSex Assigned at AwtmvInbf29/23/2025 10:26 AM EDTLegal WbrNxgp1408/13/2021 10:32 PM EDTGender MtjrjuvvRuzq75/23/2025 10:26 AM EDTSexual OrientationDon't know12/07/2024 10:26 AM EDTdocumented as of this encounter Miscellaneous Notes * Telephone Encounter - Hailee Barahona RN - 12/13/2024 7:40 AM EDT EGD/EUS procedure note from 12/06/24 along with pathology results faxed to referring office of Dr. Nick at [phone]. documented in this encounter Plan of Treatment Not on file documented as of this encounter Visit Diagnoses Not on filedocumented in this encounter
--- NOTE | 2024-12-18 14:34 | PE_ITS ---
The [address] [address] Patient Name: SARWAT JOYCE MRN: [id number] date: 1945 Sex: M Assigned Patient Location: PETCT Current Patient Location: Accession/Order Number: [id number] Exam Date: 12/18/2024 13:32 Report Date: 12/19/2024 08:00 At the request of: JUSTINA FERNANDES MD Procedure: PET skull to mid thigh PET/CT WITH FUSION COMPARISON: 01/24/[address] chest, abdomen and pelvis November 2024 CLINICAL DATA: History of lung cancer. Pancreatic lesion on recent CT. Following the intravenous administration of 8.58 mCi of FDG, SPECT imaging in 3 planes was performed from the level the orbits through the groin. Patient's blood glucose level at the time of injection was 157 mg/dL. Spiral unenhanced CT was also performed for anatomic localization. The PET and CT images were fused. This CT exam was performed using one or more following dose reduction techniques: Automated exposure control, adjustment of the mA and/or kV according to patient size, or use of iterative reconstruction technique. NECK: There are no obvious enlarged lymph nodes within limits of paucity of fat. There is a focus of soft tissue increased FDG uptake along the margin of the temporal bone superior to the zygomatic arch on the right. There are 2 foci of increased FDG uptake in the parapharyngeal region on the right. There are also small foci of increased uptake involving the paraspinal muscles. There is also slight increased FDG uptake posterior to the right second costovertebral junction. There is a potential bone lesion with increased FDG uptake at the left mandibular condyle. There is asymmetric uptake at the vocal cords, greater on the left. This might still be physiologic. CHEST: There is increased FDG uptake associated with a masslike area in the right suprahilar region with SUV of approximately 10 . This extends into the paratracheal and subcarinal region. It was seen on recent chest CT. There is no other hypermetabolic mediastinal or hilar lymphadenopathy. No hypermetabolic pulmonary nodularity is seen. There is obstructive lung disease. There are several foci of increased uptake involving the chest wall including ribs, greatest at the first costal sternal junction on the left with SUV of 15.6. There is additional osseous involvement at the sternum, left scapula and thoracic spine compatible with metastasis. There are foci of FDG uptake within the soft tissues along the chest wall and right upper arm, without obvious corresponding soft tissue findings. ABDOMEN/PELVIS: Multiple hypermetabolic hepatic metastases are present with maximum SUV up to approximately 14.5. There is also increased uptake associated with both adrenal glands where there is enlargement suggesting metastatic disease. The maximum SUV is on the left measures almost 10 . There is an irregular masslike area in the vicinity of the neck of the pancreas with associated increased FDG uptake maximum SUV of 7.8. This was seen on recent abdominal CT. Its uncertain if this could be a primary tumor. There are some mildly hypermetabolic retroperitoneal lymph nodes with SUV up to 5.4. There are additional foci of osseous increased uptake at the lumbar spine, sacrum, pelvis and proximal left femora compatible with metastatic disease. Additional foci of soft tissue uptake are also seen within the iliac fossa on the left and possibly the right as well as the gluteal region and upper legs. There is physiologic activity involving the urinary tract and bowel. PET/PET skull to mid thigh IMPRESSION: MULTIFOCAL MALIGNANCY. THE POSSIBILITY OF CONCURRENT LUNG AND PANCREATIC CANCER WITH METASTATIC DISEASE IS NOT EXCLUDED. CORRELATION AND FOLLOW-UP WILL BE NEEDED. Impression dictated by: Jacinda Rodas M.D. 12/19/2024 8:00 AM Dictation Location: [place] [address] Electronically authenticated by: [id number] Y Date: 12/19/2024 08:00
== END 2024-12-18 13:24 | disposition home or self-care (01) ==
LOC: PETCT 13:23
PROVIDERS: PCP Internal Medicine; Visit Provider Internal Medicine Hematology & Oncology
DX: Z85.118 Personal history of other malignant neoplasm of bronchus and lung (principal); C25.0 Malignant neoplasm of head of pancreas; D64.9 Anemia, unspecified; R06.02 Shortness of breath; R07.9 Chest pain, unspecified; C79.72 Secondary malignant neoplasm of left adrenal gland; R97.0 Elevated carcinoembryonic antigen [CEA]; R97.8 Other abnormal tumor markers; Z86.711 Personal history of pulmonary embolism; Z79.02 Long term (current) use of antithrombotics/antiplatelets; C78.7 Secondary malignant neoplasm of liver and intrahepatic bile duct; R93.5 Abnormal findings on diagnostic imaging of other abdominal regions, including retroperitoneum
CPT/HCPCS: 78815; A9552

== ENCOUNTER 2024-12-19 13:51 | Outpatient (RCR) | payer MEDICARE, SELFPAY ==
[2024-12-19 15:03] LABS: Hematocrit 33.0 % (42.0-54.0); Hemoglobin 10.9 g/dL (14.0-18.0); Immature Granulocytes Abs Auto 0.05 10^3/uL (0.00-0.03); Immature Granulocytes Pct Auto 0.5 % (0.0-0.5); Lymphocytes Absolute Auto 0.9 10^3/uL (1.2-3.8); Mean Corpuscular HGB Conc 33.0 g/dL (29.9-35.2); Mean Corpuscular Hemoglobin 31.1 pg (25.9-34.0); Mean Corpuscular Volume 94.0 fL (80.0-94.0); Platelet Count 426 10^3/uL (150-450); Red Blood Count 3.51 10^6/uL (4.70-6.10); White Blood Count 9.6 10^3/uL (4.0-11.0)
[2024-12-19 15:04] LABS: Alanine Aminotransferase 31 U/L (16-63); Albumin Globulin Ratio 0.6; Albumin Level 2.5 g/dL (3.4-5.0); Alkaline Phosphatase 102 U/L (46-116); Anion Gap 12.6; Aspartate Amino Transferase 26 U/L (15-37); Blood Urea Nitrogen 23.0 mg/dL (7.0-18.0); Calcium 9.4 mg/dL (8.5-10.1); Carbon Dioxide 28.9 mmol/L (21.0-32.0); Chloride 101 mmol/L (98-107); Estimated GFR (African America >60 (>=60 mL/min/1.73m^2); Estimated GFR (Non-African Ame >60 (>=60 mL/min/1.73m^2); Globulin 4.2 g/dL; Glucose 117 mg/dL (74-106); Potassium 4.5 mmol/L (3.5-5.1); Sodium 138 mmol/L (136-145); Total Protein 6.7 g/dL (6.4-8.2)
== END 2025-01-14 23:59 | disposition home or self-care (01) ==
LOC: HEMC 13:51
PROVIDERS: PCP Internal Medicine; Visit Provider Internal Medicine Hematology & Oncology
DX: C25.0 Malignant neoplasm of head of pancreas (principal); Z85.118 Personal history of other malignant neoplasm of bronchus and lung; D64.9 Anemia, unspecified; R06.02 Shortness of breath; R07.9 Chest pain, unspecified; C79.72 Secondary malignant neoplasm of left adrenal gland; R97.0 Elevated carcinoembryonic antigen [CEA]; R97.8 Other abnormal tumor markers; Z86.711 Personal history of pulmonary embolism; Z79.02 Long term (current) use of antithrombotics/antiplatelets; C78.7 Secondary malignant neoplasm of liver and intrahepatic bile duct; R93.5 Abnormal findings on diagnostic imaging of other abdominal regions, including retroperitoneum; Z90.2 Acquired absence of lung [part of]; Z80.41 Family history of malignant neoplasm of ovary; Z79.01 Long term (current) use of anticoagulants; Z87.891 Personal history of nicotine dependence; R10.13 Epigastric pain; R63.4 Abnormal weight loss
CPT/HCPCS: 36415; 80053; 85025; G0463